=== PATIENT | male | born 1970 | race Caucasian/White ===

== ENCOUNTER 2017-02-05 15:23 | Emergency (ER) | payer MEDICAID, SELFPAY ==
[~2017-02-05] VITALS: Ht 160 cm; Wt 51.6 kg
[~2017-02-05 15:23] MED LIST: /THIA10TA OR; /WARF25TA OR; ACET65TA OR; LOPR50TA OR; MELOPOW PO; MULTIVIT PO; PERC5TAB8 OR; TRAM50TA2 OR; ZEST10TA OR
[2017-02-05 17:19] VITALS: BP 116/78
--- NOTE | 2017-02-06 08:32 | REP ---
Left rib series: Five views including PA chest. History: Left lower rib pain. Audible pop. Comparison chest x-ray: June 16, 2011. Findings: PA chest radiograph remains normal. The lungs are clear and well inflated. Pleural angles are sharp. There is no evidence of hydrothorax or pneumothorax. Mediastinum is not widened. Multiple views of the left rib cage show intact left ribs without evidence of rib fracture or bony destructive lesion. Impression: Negative left rib series. Signed by Brad Cox MD 02/06/2017 09:01 A
== END 2017-02-05 17:22 | disposition home or self-care (01) ==
LOC: M ED 16:08
DX: R07.81 Pleurodynia (principal); I10 Essential (primary) hypertension; F33.9 Major depressive disorder, recurrent, unspecified; Z91.040 Latex allergy status; F17.210 Nicotine dependence, cigarettes, uncomplicated

== ENCOUNTER 2019-01-18 15:03 | Emergency (ER) | payer SELFPAY ==
[~2019-01-18] VITALS: Ht 162.6 cm; Wt 55.3 kg
[~2019-01-18 15:03] MED LIST changes: -/WARF25TA OR; +COUM1TAB18 OR
[2019-01-18 15:04] VITALS: BP 185/101
[2019-01-18] MEDS ORDERED: [UNRECOGNIZED DRUG - REMARK] (15:14)
[2019-01-20] MEDS ORDERED: NAPR-837 PO (11:28)
[2019-01-20] MEDS ORDERED: VALI5TAB PO (11:28)
[2019-01-20] MEDS ORDERED: LIDO5DIS41 TOP (11:28)
== END 2019-01-18 16:50 | disposition left against medical advice (07) ==
LOC: M ED 15:03
DX: R29.6 Repeated falls (principal); Z53.21 Procedure and treatment not carried out due to patient leaving prior to being seen by health care provider

== ENCOUNTER → 2019-07-26 | Outpatient (CLI) | payer MEDICAID, OTHER ==
[~2019-07-26] MED LIST changes: +LIDO5DIS41 TOP; +NAPR-837 PO; +VALI5TAB PO; +[UNRECOGNIZED DRUG - REMARK]
--- NOTE | 2019-07-26 14:54 | REP ---
TRIPLE PHASE BONE SCAN OF LUMBAR SPINE: Following the intravenous administration of 22 millicuries technetium 99m MDP, patient's lumbar region is imaged in the flow phase in the anterior and posterior projections showing no abnormal blood flow. Immediate blood pool and 2-hour delayed images are performed in multiple projections. There is no abnormal blood pooling. The delayed images show increased uptake at the L1 level, at the site of the compression fracture noted by CT 01/20/2019. The other visualized osseous structures demonstrate homogeneous radiotracer activity with no abnormal uptake. IMPRESSION: There is mild to moderate increased uptake on delayed images in the L1 vertebral body, at the site of a compression fracture seen by CT 01/20/2019. Electronically Signed by Mic Artis MD 07/26/2019 04:56 P
== END ==
LOC: M RAD 10:42
PROVIDERS: ATTEND Orthopaedic Surgery
DX: S32.010D Wedge compression fracture of first lumbar vertebra, subsequent encounter for fracture with routine healing (principal)
CPT/HCPCS: 78315; A9503

== ENCOUNTER 2020-07-06 11:31 | Emergency (ER) | payer OTHER ==
[~2020-07-06] VITALS: Ht 162.6 cm; Wt 50.6 kg
[~2020-07-06 11:31] MED LIST changes: -[UNRECOGNIZED DRUG - REMARK]; +[UNRECOGNIZED DRUG - REMARK] PO
[2020-07-06] MEDS ORDERED: PANTOPRAZOLE 40MG VIAL (C9113 PER 1) IV ONE (13:00)
[2020-07-06] MEDS ORDERED: METOCLOPRAMIDE INJ 10MG/2ML VIAL (J2765 PER 1) IV ONE (13:00)
[2020-07-06] MEDS ORDERED: NS 1,000 ML IV ONE (13:00)
[2020-07-06 13:09] LABS: BASO % 0.2 % (0.0-1.0); EOS # 0.1 10^3/uL (0.0-0.5); EOS % 1.2 % (0.0-3.0); HEMATOCRIT 45.6 % (42.0-52.0); HEMOGLOBIN 16.1 g/dl (13.5-17.5); LYMPH # 1.6 10^3/uL (1.5-5.0); LYMPH % 13.6 % (24.0-44.0); MEAN CORPUSCULAR HEMOGLOBIN 33.8 pg (27.0-33.0); MEAN CORPUSCULAR HGB CONC 35.3 g/dl (32.0-36.5); MEAN CORPUSCULAR VOLUME 95.8 fl (80.0-96.0); MONO # 0.5 10^3/uL (0.0-0.8); MONO % 4.6 % (0.0-5.0); NEUTROPHILS # 9.4 10^3/uL (1.5-8.5); NEUTROPHILS % 79.9 % (36.0-66.0); PLATELET COUNT, AUTOMATED 171 10^3/uL (150-450); RED BLOOD COUNT 4.76 10^6/uL (4.30-6.10); WHITE BLOOD COUNT 11.7 10^3/uL (4.0-10.0)
[2020-07-06 13:35] LABS: ALBUMIN 4.4 GM/DL (3.2-5.2); ALT/SGPT 135 U/L (12-78); BILIRUBIN,DIRECT 0.1 MG/DL (0.0-0.2); BILIRUBIN,TOTAL 0.3 MG/DL (0.2-1.0); CK-MB VALUE MASS 1.2 NG/ML (<3.6); CPK CREATINE PHOSPHOKINASE 96 U/L (39-308); ETHYL ALCOHOL (ETHANOL) 0.312 % (0.000-0.010); LIPASE 160 U/L (73-393); MB/CK RELATIVE INDEX 1.25 (< OR =4); TROPONIN I < 0.02 NG/ML (< 0.10)
--- NOTE | 2020-07-06 13:37 | REP ---
INDICATION: congested cough. COMPARISON: Frontal view 02/05/2017 TECHNIQUE: The technique utilized in obtaining the radiograph has magnified the cardiac silhouette and attenuated the interstitial markings. FINDINGS: The cardiomediastinal silhouette is within normal limits. The lung limon are unchanged. No acute patchy parenchymal opacities or pleural effusions have developed. There is no significant change in the appearance of the osseous structures. IMPRESSION: No evidence of acute cardiopulmonary disease. <Electronically signed by Alexsander Vidal > 07/06/20 [id number]
[2020-07-06] MEDS ORDERED: ISOVUE-370 76% 100ML VIAL As Ordered ONE (14:08)
[2020-07-06 14:10] LABS: INR 0.92; PROTHROMBIN TIME 12.5 SECONDS (12.5-14.3)
[2020-07-06 14:11] LABS: PARTIAL THROMBOPLASTIN TIME 30.5 SECONDS (24.2-38.5)
--- NOTE | 2020-07-06 14:37 | REP ---
INDICATION: epigastric pain. COMPARISON: None TECHNIQUE: 100 cc Isovue 370 intravenously. No oral bowel preparatory contrast was administered. FINDINGS: There are chronic changes seen in the lung bases. There are no pleural or pericardial effusions. Mild diffuse low-density is suspected throughout the liver, however, there are no noncontrast enhanced images for review. There are no enhancing hepatic lesions. The gallbladder, spleen, pancreas, adrenal glands, and kidneys are within normal limits. The gallbladder is within normal limits. The bowel loops and the mesenteries are within normal limits. There is no free fluid or free air. The abdominal aorta and para-aortic regions are within normal limits. There is no evidence of a mass or adenopathy. The osseous structures are within normal limits for the patient's age. IMPRESSION: Possible mild diffuse fatty infiltration of the liver as described above. There is no evidence of acute intraabdominal or intrapelvic disease. <Electronically signed by Alexsander Vidal > 07/06/20 1960
[2020-07-06 15:16] VITALS: BP 137/89
[2020-07-06] MEDS ORDERED: ONDA4TAB6 PO (15:32)
[2020-07-06] MEDS ORDERED: CARA1TAB6 PO (15:33)
--- NOTE | 2020-07-07 10:15 | ECGEPIP ---
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
== END 2020-07-06 15:56 | disposition home or self-care (01) ==
LOC: M ED 11:31 → EDBD 11:31 → M ED 15:56
DX: F10.10 Alcohol abuse, uncomplicated (principal); Y90.1 Blood alcohol level of 20-39 mg/100 ml; K22.6 Gastro-esophageal laceration-hemorrhage syndrome; F17.210 Nicotine dependence, cigarettes, uncomplicated
CPT/HCPCS: 71045; 74177; 80047; 80076; 82550; 82553; 83690; 85025; 85610; 85730; 86850; 86900; 86901; 93005; 93041; 96374; 96375; 99285; C9113; G0480; J2765; Q9967

== ENCOUNTER 2020-09-17 11:44 | Emergency (ER) | payer OTHER ==
[~2020-09-17] VITALS: Ht 162.6 cm; Wt 51.6 kg
[2020-09-17 11:44] VITALS: BP 156/96
[~2020-09-17 11:44] MED LIST changes: +CARA1TAB6 PO; +ONDA4TAB6 PO
--- OUTSIDE RECORDS SUMMARY | 2020-09-17 11:52 | CCD | Continuity of Care Document ---
Author Author Salbador FARLEY PA Organization Unknown Address [address] [place] [address], [address] [place] [address] Phone [phone] Care Team Providers Care Cyber Security Analyst Name Role Phone Jori Aleman DO AUTM [phone] Miki Malcolm MD Unavailable Problems Active Problems Provider Date Compression fracture of lumbar spine Ons et: 01/20/2019 Left without being seen Onset: 9 Rib pain Onset: 02/05/2017 Social History Type Date Description Comments Sex Unknown ETOH Use Currently consumes alcohol Tobacco Use Start: Unknown Patient was a smoker, current st atus is unknown Allergies, Adverse Reactions, Alerts Description No Known Drug Allergies Medications Description No Active Medications Immunizations Description No Information Available Vital Signs Date Vital Result Comment 06/19/2020 2:01pm Body Temperature 97.3 F 01/24/2019 11:17am Body Temperature 97.4 F Height 63 inches 5'3" Weight 117.00 lb BMI (Body Mass Index) 20.7 kg/m2 Results Description No Information Available Procedures Date Code Description Status 05/06/2020 69804 X-Ray Spine Lumbosacral Complete W/Oblique 4 Views Completed Medical Devices Description No Information Available Encounters Type Date Location Provider Dx Diagnosis Office Visit 06/19/2020 2:00p [place] IVAN Fuller S32.010A Wedge compression fracture of first lumbar vertebra, init Office Visit 05/06/2020 1:45p [place] IVAN Fuller S32.010D Wedge comprsn fx first lum vert, subs for fx w routn heal Z96.652 Presence of left artificial knee joint Assessments Date Code Description Provider 06/19/2020 S32.010A Wedge compression fr acture of first lumbar vertebra, initial encounter for closed fracture IVAN Fuller 06/19/2020 S32.010A Wedge compression fr acture of first lumbar vertebra, initial encounter for closed fracture IVAN Fuller 06/17/2020 S32.010D Wedge compression fr acture of first lumbar vertebra, subsequ IVAN Fuller 06/17/2020 Z96.652 Presence of left artificial knee joint IVAN Fuller 06/17/2020 M51.36 Other intervertebral disc degene ration, lumbar region IVAN Fuller 06/17/2020 M47.896 Other spondylosis, lumbar region IVAN Fuller 05/06/2020 S32.010D Wedge compression fr acture of first lumbar vertebra, subsequ IVAN Fuller 05/06/2020 Z96.652 Presence of left artificial knee joint IVAN Fuller Plan of Treatment Future Appointment(s):* 07/24/2020 11:00 am - IVAN Fuller at [place] 06/19/2020 - IVAN Fuller* S32.010A Wedge compression fracture of first lumbar vertebra, initial encounter for closed fracture* Follow up:* with IID in 3 weeks Functional Status Description No Information Available Mental Status Description No Information Available Referrals Refer to Dr Reason for Referral Status Appt Date Nathaniel Farley Pac DME PER ANNY Capps AT [facility] AUTH REQUIRED FOR [place] 637LSO ([id number]) AND COVERED AT 100% TO [facility] NT CALL REF #[id number] [facility] [address] [place] [address] [phone]
--- OUTSIDE RECORDS SUMMARY | 2020-09-17 11:52 | CCD | Continuity of Care Document ---
Author Author Salbador FARLEY Organization Unknown Address [address] [place] [address], [address] [place] [address] Phone [phone] Care Team Providers Care Pbx Inspector Name Role Phone Jori Aleman DO AUTM [phone] Miki Malcolm MD AUTShane Unavailable Problems Active Problems Provider Date Compression [...] Available Procedures Date Code Description Status 05/06/2020 91063 X-Ray Spine Lumbosacral Complete W/Oblique 4 Views Completed Medical Devices Description No Information Available Encounters Type Date Location Provider Dx Diagnosis Office Visit 06/19/2020 2:00p [place] IVAN Fuller S32.010D Wedge comprsn fx first lum vert, subs for fx w routn heal M51.36 Other intervertebral disc de generation, lumbar region M47.896 Other spondylosis, lumbar re gion Office Visit 05/06/2020 1:45p [place] IVAN Fuller S32.010D Wedge comprsn fx first lum vert, subs for fx w routn heal Z96.652 Presence of left artificial knee joint Assessments Date Code Description Provider 06/19/2020 S32.010D Wedge compression fr acture of first lumbar vertebra, subsequ IVAN Fuller 06/19/2020 M51.36 Other intervertebral disc degene ration, lumbar region IVAN Fuller 06/19/2020 M47.896 Other spondylosis, lumbar region IVAN Fuller 06/17/2020 S32.010D Wedge compression fr [...] knee joint IVAN Fuller Plan of Treatment 06/19/2020 - IVAN Fuller* S32.010D Wedge compression fracture of first lumbar vertebra, subsequ* Follow up:* with IID in 3 weeks * M51.36 Other intervertebral disc degeneration, lumbar region * M47.896 Other spondylosis, lumbar region Functional Status Description No Information Available Mental Status Description No Information Available Referrals Refer to Dr Reason for Referral Status Appt Date Nathaniel Farley Pac DME PER ANNY Capps AT [facility] AUTH REQUIRED FOR [place]IST[place] 637LSO ([id number]) AND COVERED AT 100% TO [facility] NT CALL REF #[id number] Created [facility] [address] [place] [address] [phone]
--- OUTSIDE RECORDS SUMMARY | 2020-09-17 11:52 | CCD | Continuity of Care Document ---
Author Author Salbador FARLEY Organization Unknown Address [address] [place] [address], [address] [place] [address] Phone [phone] Care Team Providers Care Prepared Foods Team Leader Name Role Phone Jori Aleman DO AUTM [phone] Miki Malcolm MD Unavailable Problems Active Problems [...] Available Procedures Date Code Description Status 05/06/2020 31742 X-Ray Spine Lumbosacral Complete W/Oblique 4 Views Completed Medical Devices Description No Information Available Encounters Type Date Location Provider Dx Diagnosis Office Visit 06/19/2020 2:00p [place] IVAN Fuller S32.010A Wedge compression fracture of first lumbar vertebra, init Office Visit 05/06/2020 1:45p [place] IVAN Fuller S32.010D Wedge comprsn fx first [...] 07/24/2020 11:00 am - IVAN Fuller at [place] 06/19/2020 - IVAN Fuller* S32.010A Wedge compression fracture of first lumbar vertebra, initial encounter for closed fracture* Follow up:* with IID in 3 weeks Functional Status Description No Information Available Mental Status Description No Information Available Referrals Refer to Dr Reason for Referral Status Appt Date Nathaniel Farley Pac DME PER ANNY Capps AT [facility] AUTH REQUIRED FOR [place] 637LSO (L0650) AND COVERED AT 100% TO [facility] NT CALL REF #[id number] Created [facility] [address] [place] [address] [phone]
--- OUTSIDE RECORDS SUMMARY | 2020-09-17 11:52 | CCD | Continuity of Care Document ---
Author Author Salbador FARLEY Organization Unknown Address [address] [place] [address], [address] [place] [address] Phone [phone] Care Team Providers Care Card Setter Name Role Phone Jori Aleman DO AUTM [phone] Miki Malcolm MD AUTShane Unavailable Problems Active [...] Available Procedures Date Code Description Status 05/06/2020 33339 X-Ray Spine Lumbosacral Complete W/Oblique 4 Views Completed Medical Devices Description No Information Available Encounters Type Date Location Provider Dx Diagnosis Office Visit 06/19/2020 2:00p [place] IVAN Fuller S32.010D Wedge comprsn fx first lum vert, subs for fx w routn heal M51.36 Other intervertebral disc de generation, lumbar region M47.896 Other spondylosis, lumbar re gion Office Visit 05/06/2020 1:45p [place] IVAN Fuller S32.010D Wedge comprsn fx first [...] 07/24/2020 11:00 am - IVAN Fuller at [place] 06/19/2020 - IVAN Fuller* S32.010D Wedge compression [...] Farley Pac DME PER ANNY Capps AT [facility] AUTH REQUIRED FOR VISTA 637LSO ([id number]) AND COVERED AT 100% TO [facility] NT CALL REF #[phone] Created [address] [facility] [address] [place] [address] [phone]
--- OUTSIDE RECORDS SUMMARY | 2020-09-17 11:52 | CCD | Continuity of Care Document ---
Author Author Salbador FARLEY Organization Unknown Address [address] [place] [address], [address] [place] [address] Phone [phone] Care Team Providers Care Nail Making Machine Tender Name Role Phone Jori Aleman DO AUTM [phone] Miki Malcolm MD Unavailable Problems Active Problems [...] Information Available Procedures Date Code Description Status 07/24/2020 81417 X-Ray Spine Lumbosacral Ap & Lat eral 2-3 Views Completed 05/06/2020 98216 X-Ray Spine Lumbosacral Complete W/Oblique 4 Views Completed Medical Devices Description No Information Available Encounters Type Date Location Provider Dx Diagnosis Office Visit 07/24/2020 11:00a [place] IVAN Fuller S32.010D Wedge comprsn fx first lum vert, subs for fx w routn heal Office Visit 06/19/2020 2:00p [place] IVAN Fuller S32.010A Wedge compression fracture of first lumbar vertebra, init Office Visit 05/06/2020 1:45p [place] IVAN Fuller S32.010D Wedge comprsn fx first lum vert, subs for fx w routn heal Z96.652 Presence of left artificial knee joint Assessments Date Code Description Provider 07/24/2020 S32.010D Wedge compression fr acture of first lumbar vertebra, subsequent encounter for fracture with routine healing IVAN Fuller 06/19/2020 S32.010A Wedge compression fr [...] IVAN Fuller Plan of Treatment Future Appointment(s):* 08/25/2020 11:30 am - IVAN Fuller at [place] 07/24/2020 - IVAN Fuller* S32.010D Wedge compression fracture of first lumbar vertebra, subsequent encounter for fracture with routine healing* Follow up:* f/u in 4 weeks back recheck with xrays lumbar spine ap-l Functional Status Description No Information Available Mental Status Description No Information Available Referrals Refer to Dr Reason for Referral Status Appt Date Nathaniel Farley Pac DME PER ANNY Capps AT [facility] AUTH REQUIRED FOR [place] 637LSO ([id number]) AND COVERED AT 100% TO [facility] NT CALL REF #[phone] [place] [address] [address] [place] [address] [phone]
--- OUTSIDE RECORDS SUMMARY | 2020-09-17 11:53 | CCD ---
Author Author [facility] Organization [facility] Address Unknown Phone Unavailable Care Team Providers Care Plastics Worker Name Role Phone DRAZEK, I KAYLA PA Unavailable Unavailable DRAZEK, I KAYLA PA Unavailable Unavailable DRAZEK, I KAYLA PA Unavailable Unavailable DRAZEK, I KAYLA PA Unavailable Unavailable DRAZEK, I KAYLA PA Unavailable Unavailable DRAZEK, I KAYLA PA Unavailable Unavailable DRAZEK, I KAYLA PA Unavailable Unavailable DRAZEK, I KAYLA PA Unavailable Unavailable DRAZEK, I KAYLA PA Unavailable Unavailable DRAZEK, I KAYLA PA Unavailable Unavailable DRAZEK, I KAYLA PA Unavailable Unavailable DRAZEK, I KAYLA PA Unavailable Unavailable DRAZEK, I KAYLA PA Unavailable Unavailable DRAZEK, I KAYLA PA Unavailable Unavailable DRAZEK, I KAYLA PA Unavailable Unavailable DRAZEK, I KAYLA PA Unavailable Unavailable DRAZEK, I KAYLA PA Unavailable Unavailable DRAZEK, I KAYLA PA Unavailable Unavailable DRAZEK, I KAYLA PA Unavailable Unavailable DRAZEK, I KAYLA PA Unavailable Unavailable DRAZEK, I KAYLA PA Unavailable Unavailable DRAZEK, I KAYLA PA Unavailable Unavailable DRAZEK, I KAYLA PA Unavailable Unavailable DRAZEK, I KAYLA PA Unavailable Unavailable DRAZEK, I KAYLA PA Unavailable Unavailable DRAZEK, I KAYLA PA Unavailable Unavailable DRAZEK, I KAYLA PA Unavailable Unavailable DRAZEK, I KAYLA PA Unavailable Unavailable DRAZEK, I KAYLA PA Unavailable Unavailable DRAZEK, I KAYLA PA Unavailable Unavailable House, Tommie Corrales PA Unavailable Unavailable House, Tommie Corrales PA Unavailable Unavailable House, Tommie Corrales PA Unavailable Unavailable House, Tommie Corrales PA Unavailable Unavailable House, Tommie Antoni PA Unavailable Unavailable House, Tommie Antoni PA Unavailable Unavailable House, Tommie Antoni PA Unavailable Unavailable House, Tommie Antoni PA Unavailable Unavailable House, Tommie Antoni PA Unavailable Unavailable House, Tommie Antoni PA Unavailable Unavailable House, Tommie Antoni PA Unavailable Unavailable House, Tommie Antoni PA Unavailable Unavailable House, Tommie Antoni PA Unavailable Unavailable House, Tommie Antoni PA Unavailable Unavailable House, Tommie Antoni PA Unavailable Unavailable House, Tommie Antoni PA Unavailable Unavailable House, Tommie Antoni PA Unavailable Unavailable House, Tommie Antoni PA Unavailable Unavailable House, Tommie Antoni PA Unavailable Unavailable House, Tommie Antoni PA Unavailable Unavailable House, Tommie Antoni PA Unavailable Unavailable House, Tommie Antoni PA Unavailable Unavailable House, Tommie Antoni PA Unavailable Unavailable House, Tommie Antoni PA Unavailable Unavailable House, Tommie Corrales PA Unavailable Unavailable House, Tommie Corrales PA Unavailable Unavailable Re-disclosure Warning The records that you are about to access may contain information from federally-assisted alcohol or drug abuse programs. If such information is present, then the following federally mandated warning applies: This information has been disclosed to you from records protected by federal confidentiality rules (42 CFR part 2). The federal rules prohibit you from making any further disclosure of this information unless further disclosure is expressly permitted by the written consent of the person to whom it pertains or as otherwise permitted by 42 CFR part 2. A general authorization for the release of medical or other information is NOT sufficient for this purpose. The Federal rules restrict any use of the information to criminally investigate or prosecute any alcohol or drug abuse patient.The records that you are about to access may contain highly sensitive health information, the redisclosure of which is protected by Article 27-F of the [place] State Public Health law. If you continue you may have access to information: Regarding HIV / AIDS; Provided by facilities licensed or operated by the [facility] Office of Mental Health; or Provided by the [facility] Office for People With Developmental Disabilities. If such information is present, then the following [facility] mandated warning applies: This information has been disclosed to you from confidential records which are protected by state law. State law prohibits you from making any further disclosure of this information without the specific written consent of the person to whom it pertains, or as otherwise permitted by law. Any unauthorized further disclosure in violation of state law may result in a fine or usp sentence or both. A general authorization for the release of medical or other information is NOT sufficient authorization for further disc losure. Encounters Encounter Providers Location Date Indications Data Source(s ) Outpatient Attender: K[facility]LA [facility] 07/24/2020 1 0:00:00 AM EST [facility] ([facility]) Outpatient Attender: K[facility]LA [facility] 06/19/2020 0 2:00:00 PM EDT [facility] ([facility]) Outpatient Attender: KAYLA [facility] 05/06/2020 0 1:45:00 PM EDT [facility] ([facility] Outpatient Referrer: Antoni LOVE 08/07/2019 09:11:00 P M EST [facility] Outpatient Attender: KAYLA [facility] 08/07/2019 1 0:30:00 AM EST [facility] ([facility]) Medications Medication Brand Name Start Date Product Form Dose Route Admi nistrative Instructions Pharmacy Instructions Status Indications Reaction Description Data Source(s) 1 % 09/11/2020 12:00:00 AM EST drops,suspension 5 INSTILL ONE DROP FOUR TIMES A DAY IN EACH EYE INSTILL ONE DROP FOUR TIMES A DAY IN EACH EYE SOLD: 09/12/2020 [facility] Insurance Providers Payer name Policy type / Coverage type Policy ID Covered democrat ID Covered democrat's relationship to grande Policy [place] Plan Information [facility] [id number] SP [id number] [facility]) O [id number] S [id number] UN COMMUNITY PLAN MCDO [id number] SP [id number] MEDICAID [id number] SP [id number] [facility] COMM[facility] PLAN [facility] [id number] SP [id number] SELF PAY ONLY [id number] SP [id number] SELF PAY ONLY [id number] SP [id number] SELF PAY UNAVAILABLE SP UNAVAILA BLE [employer] PLAN [id number] SP [id number] [employer] [id number] SP [id number] Surgeries/Procedures Procedure Description Date Indications Data Source(s) RADEX SPINE LUMBOSACRAL 2/3 VIEWS 07/24/2020 12:00:00 AM EST [facility] ([facility]) RADEX SPINE LUMBOSACRAL MINIMUM 4 VIEWS 05/06/2020 12: 00:00 AM EDT [facility] ([facility]) Results ID Date Data Source [id number] 05/23/2020 12:00:00 AM EDT [facility] Kayla LOVE Patient Name: GINGER DONALD [id number] [facility] Date of : 1970[place] [address] Date of Exam: 05/23/2020#: Fax: [phone] EXAM: MRI LUMBAR SPINE WITHOUT CONTRASTPROCEDURE INFORMATION:Exam: MR Lumbar Spine Without Contrast.Exam date and time: 05/23/2020 10:09 AM Age: 50 years oldClinical indication: Low back painTECHNIQUE: Imaging protocol: Multiplanar magnetic resonance images of thelumbar spine without intravenous contrast.COMPARISON: No relevant prior studies available.FINDINGS:Vertebrae: There is a moderate L1 ventral compression deformity withincreased edema, compatible with acute or subacute time course. There is 3mm of retropulsion of the posterior and superior margin into the canal.Spinal cord: Normal signal. No cord compression.L1-L2: There is shallow disc bulging. There is mild facet hypertrophy. Thespinal canal and neural foramina are patent.L2-L3: There is disc bulging with a central annular tear. There is mildfacet hypertrophy. There is m ild bilateral neural foraminal narrowing.L3-L4: There is shallow disc bulging. There is mild facet hypertrophy. Thespinal canal and neural foramina are patent.L4-L5: There is diffuse disc bulging. There is moderate facet hypertrophy.The spinal canal and neural foramina are patent.L5-S1: There is shallow disc bulging. There is severe right and moderateleft facet hypertrophy. There is ggsp-fm-[id number] right neural foraminalnarrowing.Soft tissues: Unremarkable.IMPRESSION:1. Acute/subacute moderate L1 compression deformity.2. Degenerative disc disease and spondylosis as described.Thank you for allowing us to participate in the care of your patient.Dictated and Authenticated by: Randi Mayfield MD 05/23/2020 12:55 PMEastern Time ([place] & [place])VradV/jmcTdede you for referring GINGER DONALD to our office. Electronically Signed - [facility] 05/23/20 13:14 Name Value Range Interpretation Code Description Data Tammi rce(s) Supporting Document(s) Procedure Vital Signs ID Date Data Source UNK Name Value Range Interpretation Code Description Data Source(s) Body temperature 97.3 [degF] 97.3 [degF] [facility] ([facility]
[2020-09-17] MEDS ORDERED: PREDOPD OU (12:01)
--- OUTSIDE RECORDS SUMMARY | 2020-09-17 12:30 | CCD ---
Author Author [facility] Organization [facility] Address Unknown Phone Unavailable Care Team Providers Care Reel Film Inspector Name Role Phone DRAZEK, I KAYLA PA Unavailable Unavailable DRAZEK, I KAYLA PA Unavailable Unavailable DRAZEK, I KAYLA PA Unavailable Unavailable DRAZEK, I KAYLA PA Unavailable Unavailable DRAZEK, I KAYLA PA Unavailable Unavailable DRAZEK, I KAYLA PA Unavailable Unavailable DRAZEK, I KAYLA PA Unavailable Unavailable DRAZEK, I KAYLA PA Unavailable Unavailable DRAZEK, I KAYLA PA Unavailable Unavailable DRAZEK, I KYALA PA Unavailable Unavailable DRAZEK, I KAYLA PA [...] is protected by Article 27-F of the [place] Public Health law. If you continue you may have access to information: Regarding HIV / AIDS; Provided by facilities licensed or operated by the [facility] Office of Mental Health; or Provided by the [facility] Office for People With Developmental Disabilities. If such information is present, then the following [facility] mandated warning applies: This information has [...] law may result in a fine or correction sentence or both. A general authorization for the release of medical or other information is NOT sufficient authorization for further disc losure. Encounters Encounter Providers Location Date Indications Data Source(s ) Outpatient Attender: KAYLA LOVE Physical Therapy 07/24/2020 1 0:00:00 AM EST [facility] ([facility]) Outpatient Attender: KAYLA LOVE Physical Therapy 06/19/2020 0 2:00:00 PM EDT [facility] ([facility]) Outpatient Attender: KAYLA LOVE Physical Therapy 05/06/2020 0 1:45:00 PM EDT [facility] ([facility] ) Outpatient Referrer: Antoni LOVE 08/07/2019 09:11:00 P M EST [facility] Outpatient Attender: KAYLA LOVE Physical Therapy 08/07/2019 1 0:30:00 AM EST [facility] ([facility]) Medications Medication Brand Name Start [...] type / Coverage type Policy ID Covered republican ID Covered republican's relationship to grande Policy Grande Plan Information [facility] [id number] SP [id number] [facility]) O [id number] S [id number] UN COMMUNITY PLAN MCDO [id number] SP [id number] MEDICAID [id number] SP [id number] [facility] COMMUNITY PLAN [facility] [id number] SP [id number] SELF PAY ONLY [id number] SP [id number] SELF PAY ONLY SP1 SP SP1 SELF PAY UNAVAILABLE SP UNAVAILA BLE [employer] PLAN [id number] SP [id number] [employer] PLAN [id number] SP [id number] Surgeries/Procedures Procedure Description Date Indications Data Source(s) RADEX SPINE LUMBOSACRAL 2/3 VIEWS 07/24/2020 12:00:00 AM EST [facility] ([facility]) RADEX SPINE LUMBOSACRAL MINIMUM 4 VIEWS 05/06/2020 12: 00:00 AM EDT [facility] ([facility]) Results ID Date Data Source [id number] 05/23/2020 12:00:00 AM EDT [facility] Kayla LOVE Patient Name: GINGER DONALD [id number] [facility] Date of : 1970[place] [address] Date of Exam: 05/23/2020#: Fax: [phone] EXAM: [...] right and moderateleft facet hypertrophy. There is duau-cc-[id number] right neural foraminalnarrowing.Soft tissues: Unremarkable.IMPRESSION:1. Acute/subacute moderate [...] Body temperature 97.3 [degF] 97.3 [degF] [facility] ([facility] )
[2020-09-17 13:35] LABS: APPEARANCE, URINE CLEAR (CLEAR); BACTERIA, URINE AUTO NEGATIVE (NEGATIVE); BILIRUBIN, URINE AUTO NEGATIVE (NEGATIVE); BLOOD, URINE BLOOD NEGATIVE (NEGATIVE); COLOR, URINE STRAW (YELLOW); GLUCOSE, URINE (UA) AUTO NEGATIVE (NEGATIVE); KETONE, URINE AUTO NEGATIVE (NEGATIVE); LEUKOCYTE ESTERASE, URINE AUTO NEGATIVE (NEGATIVE); NITRITE, URINE AUTO NEGATIVE (NEGATIVE); PROTEIN, URINE AUTO NEGATIVE (NEGATIVE); RBC, URINE AUTO 0 /HPF (0-3); SPECIFIC GRAVITY URINE AUTO 1.001 (1.002-1.035); SQUAMOUS EPITHELIAL CELL UR AU 0 /HPF (0-6); UROBILINOGEN, URINE AUTO 0.2 mg/dL (0.0-2.0); WBC, URINE AUTO 0 /HPF (0-3)
== END 2020-09-17 13:32 | disposition left against medical advice (07) ==
LOC: M ED 11:44
DX: R21 Rash and other nonspecific skin eruption (principal); F17.210 Nicotine dependence, cigarettes, uncomplicated

== ENCOUNTER 2020-09-19 11:14 | Emergency (ER) | payer OTHER ==
[~2020-09-19] VITALS: Ht 162.6 cm; Wt 52.5 kg
[~2020-09-19 11:14] MED LIST changes: +PREDOPD OU
--- OUTSIDE RECORDS SUMMARY | 2020-09-19 11:23 | CCD ---
Author Author [facility] Organization [facility] Address Unknown Phone Unavailable Care Team Providers Care Pipe Blanks Cut Off Saw Operator Name Role Phone DRAZEK, I NATHANIEL PA Unavailable Unavailable DRAZEK, I NATHANIEL PA Unavailable Unavailable DRAZEK, I NATHANIEL PA Unavailable Unavailable DRAZEK, I NATHANIEL PA Unavailable Unavailable DRAZEK, I NATHANIEL PA Unavailable Unavailable DRAZEK, I NATHANIEL PA Unavailable Unavailable DRAZEK, I NATHANIEL PA Unavailable Unavailable DRAZEK, I NATHANIEL PA Unavailable Unavailable DRAZEK, I NATHANIEL PA Unavailable Unavailable DRAZEK, I NATHANIEL PA Unavailable Unavailable DRAZEK, I NATHANIEL PA Unavailable Unavailable DRAZEK, I NATHANIEL PA Unavailable Unavailable DRAZEK, I NATHANIEL PA Unavailable Unavailable DRAZEK, I NATHANIEL PA Unavailable Unavailable DRAZEK, I NATHANIEL PA Unavailable Unavailable DRAZEK, I NATHANIEL PA Unavailable Unavailable DRAZEK, I NATHANIEL PA Unavailable Unavailable DRAZEK, I NATHANIEL PA Unavailable Unavailable DRAZEK, I NATHANIEL PA Unavailable Unavailable DRAZEK, I NATHANIEL PA Unavailable Unavailable DRAZEK, I NATHANIEL PA Unavailable Unavailable DRAZEK, I NATHANIEL PA Unavailable Unavailable DRAZEK, I NATHANIEL PA Unavailable Unavailable DRAZEK, I NATHANIEL PA Unavailable Unavailable DRAZEK, I NATHANIEL PA Unavailable Unavailable DRAZEK, I NATHANIEL PA Unavailable Unavailable DRAZEK, I NATHANIEL PA Unavailable Unavailable DRAZEK, I NATHANIEL PA Unavailable Unavailable DRAZEK, I NATHANIEL PA Unavailable Unavailable DRAZEK, I NATHANIEL PA Unavailable Unavailable House, Tommie Corrales PA [...] House, Tommie Antoni PA Unavailable Unavailable House, Tmomie Antoni PA Unavailable Unavailable House, Tommie Antoni PA Unavailable Unavailable House, Tommie Antoni PA Unavailable Unavailable Re-disclosure Warning The records [...] is protected by Article 27-F of the [facility] Public Health law. If you continue you may have access to information: Regarding HIV / AIDS; Provided by facilities licensed or operated by the [facility] Office of Mental Health; or Provided by the [facility] Office for People With Developmental Disabilities. If such information is present, then the following [facility] mandated warning applies: This information has [...] law may result in a fine or retirement sentence or both. A general authorization for the release of medical or other information is NOT sufficient authorization for further disc losure. Encounters Encounter Providers Location Date Indications Data Source(s ) Outpatient Attender: NATHANIEL LOVE Physical Therapy 07/24/2020 1 0:00:00 AM EST [facility] ([facility]) Outpatient Attender: NATHANIEL LOVE Physical Therapy 06/19/2020 0 2:00:00 PM EDT [facility] ([facility]) Outpatient Attender: NATHANIEL LOVE Physical Therapy 05/06/2020 0 1:45:00 PM EDT [facility] ([facility] ) Outpatient Referrer: Antoni LOVE 08/07/2019 09:11:00 P M EST [facility] Outpatient Attender: NATHANIEL LOVE Physical Therapy 08/07/2019 1 0:30:00 AM EST [facility] ([facility]) Medications Medication Brand Name [...] type / Coverage type Policy ID Covered constitution party ID Covered constitution party's relationship to grande Policy Grande Plan Information [facility] COMMUNITY [facility] [id number] SP [id number] [facility]ID) O [id number] S [id number] [employer] COMMUNITY PLAN MCDO [id number] SP [id number] MEDICAID [id number] SP [id number] [employer] COMMUNITY PLAN MCDO [id number] SP [id number] SELF PAY ONLY [id number] SP [id number] SELF PAY ONLY SP1 SP SP1 SELF PAY UNAVAILABLE SP UNAVAILA BLE [employer] PLAN [id number] SP [id number] [employer] PLAN [id number] SP [id number] Surgeries/Procedures Procedure Description Date Indications Data Source(s) RADEX SPINE LUMBOSACRAL 2/3 VIEWS 07/24/2020 12:00:00 AM EST [facility] ([facility]) RADEX SPINE LUMBOSACRAL MINIMUM 4 VIEWS 05/06/2020 12: 00:00 AM EDT [facility] ([facility]) Results ID Date Data Source [id number] 05/23/2020 12:00:00 AM EDT [facility] Nathaniel LOVE Patient Name: GINGER DONALD [id number] [facility] Date of : 1970[place] [address] Date of Exam: 05/23/2020#: Fax: [phone] EXAM: [...] right and moderateleft facet hypertrophy. There is pxtu-[id number] right neural foraminalnarrowing.Soft tissues: Unremarkable.IMPRESSION:1. Acute/subacute moderate L1 compression deformity.2. Degenerative disc disease and spondylosis as described.Thank you for allowing us to participate in the care of your patient.Dictated and Authenticated by: Randi Mayfield MD 05/23/2020 12:55 PMEastern Time ([place] & [place])VradV/jmcThanclaire you for referring GINGER DONALD to our office. Electronically Signed - [facility] 05/23/20 13:14 Name Value Range Interpretation Code Description Data Tammi rce(s) Supporting Document(s) Procedure Vital Signs ID Date Data Source UNK Name Value Range Interpretation Code Description Data Source(s) Body temperature 97.3 [degF] 97.3 [degF] [facility] ([facility] )
[2020-09-19] MEDS ORDERED: PRED1SUS30 OP (11:29)
--- OUTSIDE RECORDS SUMMARY | 2020-09-19 11:53 | CCD ---
Author Author [facility] Organization [facility] Address Unknown Phone Unavailable Care Team Providers Care Ceo And Founder Name Role Phone DRAZEK, I NATHANIEL PA [...] is protected by Article 27-F of the [facility] Public Health law. If you continue you may have access to information: Regarding HIV / AIDS; Provided by facilities licensed or operated by the [facility] Office of Mental Health; or Provided by the [facility] Office for People With Developmental Disabilities. If such information is present, then the following [facility] mandated warning applies: This information has been [...] Therapy 07/24/2020 1 0:00:00 AM EST [facility] ([facility]) Outpatient Attender: NATHANIEL LOVE Physical Therapy 06/19/2020 0 2:00:00 PM EDT [facility] ([facility]) Outpatient Attender: NATHANIEL LOVE Physical Therapy 05/06/2020 0 1:45:00 PM EDT [facility] ([facility] ) Outpatient Referrer: Antoni LOVE 08/07/2019 09:11:00 P M EST [facility] Outpatient Attender: NATHANIEL LOVE Physical Therapy 08/07/2019 1 0:30:00 AM EST [facility] ([facility]) Medications Medication Brand Name [...] grande Policy Grande Plan Information [facility] COMMUNITY [facility] [id number] SP [id number] [facility](MCAID) O [id number] S [id number] [employer] COMMUNITY PLAN MCDO [id number] SP [id number] MEDICAID [id number] SP [id number] UNHC COMMUNITY PLAN MCDO [id number] SP [id number] SELF PAY ONLY [id number] SP [id number] SELF PAY ONLY SP1 SP SP1 SELF PAY UNAVAILABLE SP UNAVAILA BLE [employer] PLAN [id number] SP [id number] [employer] PLAN [id number] SP [id number] Surgeries/Procedures Procedure Description Date Indications Data Source(s) RADEX SPINE LUMBOSACRAL 2/3 VIEWS 07/24/2020 12:00:00 AM EST [facility] ([facility]) RADEX SPINE LUMBOSACRAL MINIMUM 4 VIEWS 05/06/2020 12: 00:00 AM EDT [facility] ([facility]) Results ID Date Data Source [id number] 05/23/2020 12:00:00 AM EDT [facility] Nathaniel LOVE Patient Name: GINGER DONALD [id number] [facility] Date of : 1970[place] [address] Date of Exam: 05/23/2020#: Fax: [phone] EXAM: [...] right and moderateleft facet hypertrophy. There is amxv-fh-oystlvip right neural foraminalnarrowing.Soft tissues: Unremarkable.IMPRESSION:1. Acute/subacute moderate [...] Body temperature 97.3 [degF] 97.3 [degF] [facility] ([facility] )
[2020-09-19] MEDS ORDERED: PRED5SOL10 PO (12:10)
[2020-09-19 12:22] VITALS: BP 162/93
== END 2020-09-19 12:23 | disposition home or self-care (01) ==
LOC: M ED 11:14
DX: L30.9 Dermatitis, unspecified (principal); F17.210 Nicotine dependence, cigarettes, uncomplicated

== ENCOUNTER → 2020-11-05 | Outpatient (REF) | payer OTHER ==
[~2020-11-05] MED LIST changes: +PRED1SUS30 OP; +PRED5SOL10 PO
== END ==
LOC: M LAB REF 17:15
PROVIDERS: ATTEND Physician Assistant
DX: R21 Rash and other nonspecific skin eruption (principal)

== ENCOUNTER → 2021-02-25 | Outpatient (CLI) | payer OTHER ==
[2021-02-25 14:30] LABS: HEMATOCRIT 40.1 % (42.0-52.0); HEMOGLOBIN 13.7 g/dl (13.5-17.5); MEAN CORPUSCULAR HEMOGLOBIN 34.3 pg (27.0-33.0); MEAN CORPUSCULAR HGB CONC 34.2 g/dl (32.0-36.5); MEAN CORPUSCULAR VOLUME 100.5 fl (80.0-96.0); PLATELET COUNT, AUTOMATED 227 10^3/uL (150-450); RED BLOOD COUNT 3.99 10^6/uL (4.30-6.10); WHITE BLOOD COUNT 6.7 10^3/uL (4.0-10.0)
[2021-02-25 15:02] LABS: ALBUMIN 3.4 GM/DL (3.2-5.2); ALT/SGPT 190 U/L (12-78); BILIRUBIN,TOTAL 0.3 MG/DL (0.2-1.0); BLOOD UREA NITROGEN 5 MG/DL (7-18); CALCIUM LEVEL 8.4 MG/DL (8.5-10.1); CARBON DIOXIDE LEVEL 24 MEQ/L (21-32); CHLORIDE LEVEL 103 MEQ/L (98-107); CREATININE FOR GFR 0.79 MG/DL (0.70-1.30); GLOMERULAR FILTRATION RATE > 60.0 (>56); GLUCOSE, FASTING 81 MG/DL (70-100); PHOSPHORUS LEVEL 4.4 MG/DL (2.5-4.9); POTASSIUM SERUM 4.2 MEQ/L (3.5-5.1); SODIUM LEVEL 134 MEQ/L (136-145); TOTAL PROTEIN 7.4 GM/DL (6.4-8.2)
[2021-02-25 15:21] LABS: HEPATITIS B SURFACE ANTIGEN NEGATIVE (NEGATIVE)
[2021-02-25 15:48] LABS: HEPATITIS B CORE ANTIBODY IGM NEGATIVE (NEGATIVE)
[2021-02-25 15:49] LABS: HIV 1&2 SCREEN CENTAUR NEGATIVE (NEGATIVE)
== END ==
LOC: M LAB 13:48
PROVIDERS: ATTEND Physician Assistant
DX: L28.2 Other prurigo (principal)

== ENCOUNTER 2021-10-15 15:52 | Emergency (ER) | payer OTHER ==
[~2021-10-15] VITALS: Ht 160 cm; Wt 53.7 kg
[2021-10-15 15:53] VITALS: BP 129/89
[2021-10-15] MEDS ORDERED: TACR0.1O (16:28)
[2021-10-15] MEDS ORDERED: HYDR50TA70 (16:28)
[2021-10-15] MEDS ORDERED: DEXT30LI (16:28)
[2021-10-15] MEDS ORDERED: ALBU8.5H (16:28)
[2021-10-15] MEDS ORDERED: INCR1INH (16:28)
[2021-10-15] MEDS ORDERED: PRED20TA (16:28)
[2021-10-15] MEDS ORDERED: PRED20TA PO (17:09)
[2021-10-15] MEDS ORDERED: methylPREDNISolone 125MG 2ML VIAL IM ONE (17:10)
== END 2021-10-15 17:23 | disposition home or self-care (01) ==
LOC: M ED 15:52
DX: R21 Rash and other nonspecific skin eruption (principal); L29.9 Pruritus, unspecified; J45.909 Unspecified asthma, uncomplicated
CPT/HCPCS: 96372; 99283; J2930

== ENCOUNTER → 2022-04-16 | Outpatient (CLI) | payer OTHER ==
[~2022-04-16] MED LIST changes: +ALBU8.5H; +DEXT30LI; +HYDR50TA70; +INCR1INH; +PRED20TA; +PRED20TA PO; +TACR0.1O
[2022-04-16 13:29] LABS: HEMATOCRIT 42.8 % (42.0-52.0); HEMOGLOBIN 14.5 g/dl (13.5-17.5); MEAN CORPUSCULAR HEMOGLOBIN 31.9 pg (27.0-33.0); MEAN CORPUSCULAR HGB CONC 33.9 g/dl (32.0-36.5); MEAN CORPUSCULAR VOLUME 94.3 fl (80.0-96.0); PLATELET COUNT, AUTOMATED 290 10^3/uL (150-450); RED BLOOD COUNT 4.54 10^6/uL (4.30-6.10); WHITE BLOOD COUNT 4.9 10^3/uL (4.0-10.0)
[2022-04-16 14:01] LABS: ALBUMIN 3.6 GM/DL (3.2-5.2); ALT/SGPT 66 U/L (12-78); BILIRUBIN,TOTAL 0.2 MG/DL (0.2-1.0); BLOOD UREA NITROGEN 5 MG/DL (7-18); CARBON DIOXIDE LEVEL 18 MEQ/L (21-32); CHLORIDE LEVEL 100 MEQ/L (98-107); CREATININE FOR GFR 0.68 MG/DL (0.70-1.30); GLOMERULAR FILTRATION RATE > 60.0 (>56); GLUCOSE, FASTING 200 MG/DL (70-100); POTASSIUM SERUM 3.7 MEQ/L (3.5-5.1); SODIUM LEVEL 129 MEQ/L (136-145); TOTAL PROTEIN 8.1 GM/DL (6.4-8.2)
== END ==
LOC: M LAB 12:32
PROVIDERS: ATTEND Nurse Practitioner Family
DX: L20.9 Atopic dermatitis, unspecified (principal)

== ENCOUNTER → 2022-07-29 | Outpatient (REF) | payer OTHER | LOC: M SFHCDERM 13:53 | PROVIDERS: ATTEND Physician Assistant | DX: D49.2 Neoplasm of unspecified behavior of bone, soft tissue, and skin (principal); Q82.5 Congenital non-neoplastic nevus ==

== ENCOUNTER 2022-10-02 17:50 | Emergency (ER) | payer OTHER ==
[~2022-10-02] VITALS: Ht 121.9 cm; Wt 51.8 kg
[2022-10-02 18:48] LABS: BASO # 0.1 10^3/uL (0.0-0.2); BASO % 0.3 % (0.0-1.0); EOS # 0.7 10^3/uL (0.0-0.5); EOS % 4.6 % (0.0-3.0); HEMATOCRIT 31.5 % (42.0-52.0); HEMOGLOBIN 10.3 g/dl (13.5-17.5); LYMPH # 0.9 10^3/uL (1.5-5.0); LYMPH % 5.8 % (24.0-44.0); MEAN CORPUSCULAR HGB CONC 32.7 g/dl (32.0-36.5); MEAN CORPUSCULAR VOLUME 94.9 fl (80.0-96.0); MONO % 6.2 % (2.0-8.0); NEUTROPHILS % 81.7 % (36.0-66.0); PLATELET COUNT, AUTOMATED 542 10^3/uL (150-450); RED BLOOD COUNT 3.32 10^6/uL (4.30-6.10); WHITE BLOOD COUNT 15.9 10^3/uL (4.0-10.0)
[2022-10-02 19:17] LABS: ALKALINE PHOSPHATASE 110 U/L (46-116); ALT/SGPT 12 U/L (7.0-40); AST/SGOT 33 U/L (<34); BILIRUBIN,DIRECT < 0.1 MG/DL (<0.4); BILIRUBIN,TOTAL < 0.2 MG/DL (0.3-1.2); BLOOD UREA NITROGEN 5 MG/DL (9-23); CALCIUM LEVEL 7.9 MG/DL (8.5-10.1); CARBON DIOXIDE LEVEL 21 MMOL/L (20-31); CHLORIDE LEVEL 103 MMOL/L (98-107); CREATININE FOR GFR 0.53 MG/DL (0.70-1.30); GLOMERULAR FILTRATION RATE > 60.0 (>56); GLUCOSE, FASTING 94 MG/DL (60-100); POTASSIUM SERUM 4.2 MMOL/L (3.5-5.1); SODIUM LEVEL 133 MMOL/L (136-145); TOTAL PROTEIN 6.9 G/DL (5.7-8.2)
[2022-10-02] MEDS ORDERED: GABAPENTIN 300 MG CAP PO ONE (20:35)
[2022-10-02 21:35] LABS: ETHYL ALCOHOL (ETHANOL) 0.054 % (0.000-0.010)
[2022-10-02 21:43] LABS: HEMOGLOBIN A1c 5.4 % (4.0-6.0)
[2022-10-02 22:45] VITALS: BP 174/93
[2022-10-02] MEDS ORDERED: NEUR300C PO (23:17)
== END 2022-10-02 23:42 | disposition home or self-care (01) ==
LOC: M ED 17:50 → EDBD 17:50 → M ED 23:42
DX: G62.9 Polyneuropathy, unspecified (principal); R60.9 Edema, unspecified; I10 Essential (primary) hypertension; L20.9 Atopic dermatitis, unspecified; F17.200 Nicotine dependence, unspecified, uncomplicated; Z79.51 Long term (current) use of inhaled steroids; Z79.899 Other long term (current) drug therapy

== ENCOUNTER → 2022-10-21 | Outpatient (REF) | payer OTHER ==
[~2022-10-21] MED LIST changes: +NEUR300C PO
[2022-10-21 14:50] LABS: BASO # 0.1 10^3/uL (0.0-0.2); BASO % 0.3 % (0.0-1.0); EOS # 1.2 10^3/uL (0.0-0.5); EOS % 8.5 % (0.0-3.0); HEMATOCRIT 31.3 % (42.0-52.0); HEMOGLOBIN 10.1 g/dl (13.5-17.5); LYMPH # 1.7 10^3/uL (1.5-5.0); LYMPH % 11.3 % (24.0-44.0); MEAN CORPUSCULAR HGB CONC 32.3 g/dl (32.0-36.5); MONO # 1.1 10^3/uL (0.0-0.8); MONO % 7.6 % (2.0-8.0); NEUTROPHILS # 10.4 10^3/uL (1.5-8.5); NEUTROPHILS % 70.9 % (36.0-66.0); PLATELET COUNT, AUTOMATED 635 10^3/uL (150-450); RED BLOOD COUNT 3.26 10^6/uL (4.30-6.10); WHITE BLOOD COUNT 14.7 10^3/uL (4.0-10.0)
[2022-10-21 15:30] LABS: ALKALINE PHOSPHATASE 113 U/L (46-116); ALT/SGPT 14 U/L (7.0-40); AST/SGOT 19 U/L (<34); BILIRUBIN,TOTAL < 0.2 MG/DL (0.3-1.2); BLOOD UREA NITROGEN 6 MG/DL (9-23); CALCIUM LEVEL 8.3 MG/DL (8.5-10.1); CARBON DIOXIDE LEVEL 25 MMOL/L (20-31); CHLORIDE LEVEL 104 MMOL/L (98-107); CREATININE FOR GFR 0.55 MG/DL (0.70-1.30); GLOMERULAR FILTRATION RATE > 60.0 (>56); GLUCOSE, FASTING 92 MG/DL (60-100); MAGNESIUM LEVEL 1.7 MG/DL (1.8-2.4); POTASSIUM SERUM 4.6 MMOL/L (3.5-5.1); SODIUM LEVEL 134 MMOL/L (136-145); TOTAL PROTEIN 8.2 G/DL (5.7-8.2)
== END ==
LOC: M SFHCADAM 08:14
PROVIDERS: ATTEND Nurse Practitioner Family
DX: L20.9 Atopic dermatitis, unspecified (principal)

== ENCOUNTER → 2022-11-15 | Outpatient (CLI) | payer MEDICAID | LOC: M OUTALCOH 07:25 | PROVIDERS: ATTEND Psychiatry & Neurology Psychiatry | DX: Z03.89 Encounter for observation for other suspected diseases and conditions ruled out (principal) ==

== ENCOUNTER 2022-11-22 10:07 | Outpatient (RCR) | payer MEDICAID | END 2022-12-19 | LOC: M OUTALCOH 10:07 | PROVIDERS: ATTEND Psychiatry & Neurology Psychiatry | DX: Z03.89 Encounter for observation for other suspected diseases and conditions ruled out (principal); Z72.0 Tobacco use ==

== ENCOUNTER → 2022-11-22 | Outpatient (CLI) | payer OTHER ==
[~2022-11-22] MED LIST changes: +PRED15SO24 PO; -PRED5SOL10 PO
[2022-11-22 10:05] LABS: HEMATOCRIT 38.1 % (42.0-52.0); MEAN CORPUSCULAR HEMOGLOBIN 29.3 pg (27.0-33.0); MEAN CORPUSCULAR HGB CONC 31.5 g/dl (32.0-36.5); MEAN CORPUSCULAR VOLUME 92.9 fl (80.0-96.0); PLATELET COUNT, AUTOMATED 324 10^3/uL (150-450)
[2022-11-22 11:41] LABS: ALBUMIN 3.3 G/DL (3.2-5.2); ALKALINE PHOSPHATASE 109 U/L (46-116); ALT/SGPT 19 U/L (7.0-40); AST/SGOT 20 U/L (<34); BILIRUBIN,DIRECT < 0.1 MG/DL (<0.4); BILIRUBIN,TOTAL 0.3 MG/DL (0.3-1.2); BLOOD UREA NITROGEN 7 MG/DL (9-23); CALCIUM LEVEL 8.8 MG/DL (8.5-10.1); CARBON DIOXIDE LEVEL 21 MMOL/L (20-31); CHLORIDE LEVEL 105 MMOL/L (98-107); CREATININE FOR GFR 0.73 MG/DL (0.70-1.30); GLOMERULAR FILTRATION RATE > 60.0 (>56); GLUCOSE, FASTING 138 MG/DL (60-100); PHOSPHORUS LEVEL 3.4 MG/DL (2.5-4.9); SODIUM LEVEL 135 MMOL/L (136-145)
== END ==
LOC: M LAB 09:21
PROVIDERS: ATTEND Physician Assistant
DX: L20.9 Atopic dermatitis, unspecified (principal)

== ENCOUNTER → 2022-12-16 | Outpatient (CLI) | payer OTHER ==
[~2022-12-16] MED LIST changes: +PROHANCE 279.3MG/ML 15ML VIAL As Ordered ONE
== END ==
LOC: M RAD 08:19
PROVIDERS: ATTEND Surgery Vascular Surgery
DX: I65.23 Occlusion and stenosis of bilateral carotid arteries (principal); G93.89 Other specified disorders of brain
CPT/HCPCS: 70553; 93880; A9576

== ENCOUNTER → 2022-12-16 | Outpatient (CLI) | payer OTHER ==
[~2022-12-16] MED LIST changes: -PROHANCE 279.3MG/ML 15ML VIAL As Ordered ONE
[2022-12-16 09:27] LABS: BASO # 0.1 10^3/uL (0.0-0.2); BASO % 0.6 % (0.0-1.0); EOS # 0.6 10^3/uL (0.0-0.5); EOS % 5.6 % (0.0-3.0); HEMATOCRIT 38.1 % (42.0-52.0); HEMOGLOBIN 11.8 g/dl (13.5-17.5); MEAN CORPUSCULAR HEMOGLOBIN 28.2 pg (27.0-33.0); MEAN CORPUSCULAR VOLUME 90.9 fl (80.0-96.0); MONO # 1.1 10^3/uL (0.0-0.8); MONO % 10.3 % (2.0-8.0); NEUTROPHILS # 6.7 10^3/uL (1.5-8.5); NEUTROPHILS % 63.6 % (36.0-66.0); PLATELET COUNT, AUTOMATED 447 10^3/uL (150-450); RED BLOOD COUNT 4.19 10^6/uL (4.30-6.10); WHITE BLOOD COUNT 10.5 10^3/uL (4.0-10.0)
[2022-12-16 09:54] LABS: ALBUMIN 2.8 G/DL (3.2-5.2); ALKALINE PHOSPHATASE 126 U/L (46-116); ALT/SGPT < 9 U/L (7.0-40); AST/SGOT 18 U/L (<34); BILIRUBIN,TOTAL < 0.2 MG/DL (0.3-1.2); BLOOD UREA NITROGEN 9 MG/DL (9-23); CALCIUM LEVEL 8.6 MG/DL (8.5-10.1); CARBON DIOXIDE LEVEL 23 MMOL/L (20-31); CHLORIDE LEVEL 106 MMOL/L (98-107); CREATININE FOR GFR 0.58 MG/DL (0.70-1.30); GLOMERULAR FILTRATION RATE > 60.0 (>56); GLUCOSE, FASTING 86 MG/DL (60-100); POTASSIUM SERUM 4.5 MMOL/L (3.5-5.1); SODIUM LEVEL 136 MMOL/L (136-145); TOTAL PROTEIN 7.9 G/DL (5.7-8.2)
== END ==
LOC: M LAB 08:21
PROVIDERS: ATTEND Physician Assistant
DX: Z79.899 Other long term (current) drug therapy (principal)

== ENCOUNTER 2022-12-29 03:22 | Emergency (ER) | payer OTHER ==
[~2022-12-29] VITALS: Ht 162.6 cm; Wt 54.2 kg
[2022-12-29 03:23] VITALS: BP 138/102
== END 2022-12-29 04:41 | disposition left against medical advice (07) ==
LOC: M ED 03:22
DX: Z53.21 Procedure and treatment not carried out due to patient leaving prior to being seen by health care provider (principal)

== ENCOUNTER 2023-05-04 11:47 | Emergency (ER) | payer OTHER ==
[~2023-05-04] VITALS: Ht 160 cm; Wt 49.9 kg
[2023-05-04] MEDS ORDERED: TRIA1CR80 (12:03)
[2023-05-04] MEDS ORDERED: FLUO0.05 (12:04)
[2023-05-04] MEDS ORDERED: DUPI300I (12:04)
[2023-05-04] MEDS ORDERED: ACETAMINOPHEN 500 MG TAB PO ONE (16:00)
[2023-05-04] MEDS ORDERED: IBUP-1022 PO (17:03)
[2023-05-04] MEDS ORDERED: OMEP-173 PO (17:03)
[2023-05-04 17:11] VITALS: BP 166/93; TEMP 98.1; O2SAT 100
== END 2023-05-04 17:12 | disposition home or self-care (01) ==
LOC: M ED 11:47
DX: K40.90 Unilateral inguinal hernia, without obstruction or gangrene, not specified as recurrent (principal); I10 Essential (primary) hypertension; C61 Malignant neoplasm of prostate; F17.200 Nicotine dependence, unspecified, uncomplicated; Z79.891 Long term (current) use of opiate analgesic; Z79.83 Long term (current) use of bisphosphonates; Z79.899 Other long term (current) drug therapy

== ENCOUNTER 2023-07-01 10:28 | Day surgery (SDC) | payer OTHER ==
[~2023-07-01] VITALS: Ht 162.6 cm; Wt 47.1 kg
[~2023-07-01 10:28] MED LIST changes: +ANOR1AER; +CelecoXIB 400 MG CAP PO ONE; +DUPI300I; +FLUO0.05; +IBUP-1022 PO; +MELO7.5T35 PO; +MYCO500T PO; +OMEP-173 PO; +PROP20TA72 PO; +TRAZ-257 PO; +TRIA1CR80; +ceFAZolin SOD 2 GM in IV 1 EA IV ONE
[2023-07-01] MEDS ORDERED: LR 1,000 ML IV SCH ×2 (11:20→15:50)
[2023-07-01] MEDS ORDERED: LIDOCAINE 1% SDV 30ML VIAL As Ordered ONE (13:07)
[2023-07-01] MEDS ORDERED: SUGAMMADEX SODIUM 500 MG/5 ML VIAL (BRIDION) As Ordered ONE (14:01)
[2023-07-01] MEDS ORDERED: ACETAMINOPHEN 1000MG 100ML IV BAG As Ordered ONE (14:01)
[2023-07-01] MEDS ORDERED: dexmedeTOMIDine (4MCG/ML)200MCG/50ML BTL (PRECEDEX) As Ordered ONE (14:01)
[2023-07-01] MEDS ORDERED: fentaNYL 250 MCG/5 ML INJECTION As Ordered ONE (14:01)
[2023-07-01] MEDS ORDERED: ONDANSETRON 4MG 2ML VIAL As Ordered ONE (14:01)
[2023-07-01] MEDS ORDERED: LIDOCAINE 2% 100MG/5ML SDV (FOR ANES.) As Ordered ONE (14:01)
[2023-07-01] MEDS ORDERED: propofoL 200 MG/20 ML VIAL As Ordered ONE (14:01)
[2023-07-01] MEDS ORDERED: METOCLOPRAMIDE INJ 10MG/2ML VIAL As Ordered ONE (14:01)
[2023-07-01] MEDS ORDERED: MIDAZOLAM INJ 2MG/2ML VIAL As Ordered ONE (14:01)
[2023-07-01] MEDS ORDERED: ROCURONIUM BROMIDE 50MG/5ML VIAL As Ordered ONE (14:01)
[2023-07-01] MEDS ORDERED: LABETALOL 100MG/20ML VIAL As Ordered ONE (14:26)
[2023-07-01] MEDS ORDERED: ONDANSETRON 4MG 2ML VIAL IV PRN (15:50)
[2023-07-01] MEDS ORDERED: oxyCODONE 5MG TAB PO PRN (15:50)
[2023-07-01] MEDS ORDERED: fentaNYL 100 MCG/2 ML INJECTION IV PRN (15:50)
[2023-07-01] MEDS ORDERED: HYDROMORPHONE HCL 0.5 MG/ 0.5 ML SYRINGE IV PRN (15:50)
[2023-07-01] MEDS ORDERED: hydrALAZINE 20MG/ML 1ML VIAL IV PRN (16:35)
[2023-07-01 16:46] VITALS: BP 170/95
[2023-07-01 17:05] VITALS: BP 177/93; TEMP 96.8; O2SAT 95
[2023-07-01] MEDS ORDERED: NORCO, ANEXSIA 5/325MG TABLET (HYDROcodone/ACETAMINOPHEN) PO PRN (21:20)
[2023-07-01] MEDS ORDERED: KETOROLAC 30 MG/ML 1ML VIAL IV SCH (22:00)
== END 2023-07-01 17:36 | disposition home or self-care (01) ==
LOC: M SDC 10:28
PROVIDERS: ATTEND Surgery
DX: K40.20 Bilateral inguinal hernia, without obstruction or gangrene, not specified as recurrent (principal); I10 Essential (primary) hypertension; F17.210 Nicotine dependence, cigarettes, uncomplicated; Z79.899 Other long term (current) drug therapy; Z79.52 Long term (current) use of systemic steroids
CPT/HCPCS: 49650; C1781; J0131; J0360; J0665; J0690; J1100; J1920; J2250; J2405; J2765; J3010

== ENCOUNTER → 2023-08-11 | Outpatient (CLI) | payer OTHER ==
[~2023-08-11] MED LIST changes: -CelecoXIB 400 MG CAP PO ONE; -ceFAZolin SOD 2 GM in IV 1 EA IV ONE
== END ==
LOC: M PLAIMG 14:40
PROVIDERS: ATTEND Physician Assistant
DX: M16.11 Unilateral primary osteoarthritis, right hip (principal); R10.31 Right lower quadrant pain

== ENCOUNTER 2023-08-22 03:14 | Inpatient (IN) | payer OTHER ==
[2023-08-22] VITALS (10 sets, daily range): BP systolic 111–150; BP diastolic 71–91; TEMP 97.7–99; O2SAT 94–96
[~2023-08-22] VITALS: Ht 162.6 cm; Wt 50.9 kg
[~2023-08-22 03:14] MED LIST changes: -DUPI300I; +DUPI300I IM
[2023-08-22] MEDS ORDERED: IBUP-1022 PO (03:49)
[2023-08-22 07:56] LABS: BASO % 0.2 % (0.0-1.0); EOS # 0.1 10^3/uL (0.0-0.5); HEMATOCRIT 41.5 % (42.0-52.0); HEMOGLOBIN 13.6 g/dl (13.5-17.5); LYMPH # 1.7 10^3/uL (1.5-5.0); LYMPH % 18.6 % (24.0-44.0); MEAN CORPUSCULAR HEMOGLOBIN 28.6 pg (27.0-33.0); MEAN CORPUSCULAR HGB CONC 32.8 g/dl (32.0-36.5); MEAN CORPUSCULAR VOLUME 87.4 fl (80.0-96.0); MONO # 0.8 10^3/uL (0.0-0.8); MONO % 8.5 % (2.0-8.0); NEUTROPHILS # 6.3 10^3/uL (1.5-8.5); NEUTROPHILS % 71.4 % (36.0-66.0); PLATELET COUNT, AUTOMATED 391 10^3/uL (150-450); RED BLOOD COUNT 4.75 10^6/uL (4.30-6.10); WHITE BLOOD COUNT 8.9 10^3/uL (4.0-10.0)
[2023-08-22] MEDS ORDERED: fentaNYL 100 MCG/2 ML INJECTION IV ONE (08:00)
[2023-08-22 08:07] LABS: PROTHROMBIN TIME 12.9 SECONDS (12.5-14.5)
[2023-08-22 08:08] LABS: PARTIAL THROMBOPLASTIN TIME 35.3 SECONDS (24.8-34.2)
[2023-08-22 08:23] LABS: BLOOD UREA NITROGEN 5 MG/DL (9-23); CALCIUM LEVEL 8.9 MG/DL (8.5-10.1); CARBON DIOXIDE LEVEL 22 MMOL/L (20-31); CHLORIDE LEVEL 105 MMOL/L (98-107); CREATININE FOR GFR 0.42 MG/DL (0.70-1.30); GLOMERULAR FILTRATION RATE > 60.0 (>56); GLUCOSE, FASTING 72 MG/DL (60-100); POTASSIUM SERUM 4.5 MMOL/L (3.5-5.1); SODIUM LEVEL 136 MMOL/L (136-145)
[2023-08-22 08:57] LABS: RSV AMPLIFICATION NEGATIVE (NEGATIVE)
[2023-08-22] MEDS: THIAMINE 100 MG TAB PO SCH ×3 (09:00→21:03)
[2023-08-22] MEDS: D5W/0.45% SODIUM CHLORIDE 1,000 ML IV SCH ×2 (09:34→17:21)
[2023-08-22] MEDS ORDERED: MED REC IN PROGRESS XX SCH (09:40)
[2023-08-22] MEDS ORDERED: OMEP-173 PO (10:01)
[2023-08-22] MEDS ORDERED: HOME MED LIST COMPLETE! XX SCH (10:10)
[2023-08-22] MEDS ORDERED: IPRATROPIUM 0.5MG/ALBUTEROL 2.5MG INH SOL UD 3ML (DUONEB) NEB PRN (10:55)
[2023-08-22] MEDS ORDERED: MORPHINE 4 MG/ML 1ML VIAL IV PRN ×2 (10:55→15:05)
[2023-08-22] MEDS ORDERED: MORPHINE 4 MG/ML 1ML VIAL IV ONE (10:55)
[2023-08-22] MEDS: NICOTINE 21MG/24HR 1 EA TRANSDERMAL TD SCH (10:55)
[2023-08-22] MEDS ORDERED: LORazepam 2 MG TAB PO PRN (10:55)
[2023-08-22] MEDS ORDERED: KETOROLAC 30 MG/ML 1ML VIAL IV ONE (10:55)
[2023-08-22] MEDS ORDERED: NITROGLYCERIN 2% OINT 1 GM *U/D* PKT TOP ONE (10:55)
[2023-08-22] MEDS ORDERED: fentaNYL 100 MCG/2 ML INJECTION As Ordered ONE ×2 (11:32→15:12)
[2023-08-22] MEDS ORDERED: MIDAZOLAM INJ 2MG/2ML VIAL As Ordered ONE (11:32)
[2023-08-22] MEDS ORDERED: LIDOCAINE 2% 100MG/5ML SDV (FOR ANES.) As Ordered ONE (11:36)
[2023-08-22] MEDS ORDERED: ONDANSETRON 4MG 2ML VIAL As Ordered ONE (11:36)
[2023-08-22] MEDS ORDERED: propofoL 200 MG/20 ML VIAL As Ordered ONE (11:36)
[2023-08-22] MEDS ORDERED: ROCURONIUM BROMIDE 50MG/5ML VIAL As Ordered ONE ×2 (11:36→13:00)
[2023-08-22] MEDS ORDERED: SUGAMMADEX SODIUM 500 MG/5 ML VIAL (BRIDION) As Ordered ONE (11:36)
[2023-08-22] MEDS ORDERED: ceFAZolin 2 GM/D5W 50 ML IV BAG As Ordered ONE (11:42)
[2023-08-22] MEDS ORDERED: TRANEXAMIC ACID 100 MG/ML 10ML VIAL As Ordered ONE ×2 (11:42→12:44)
[2023-08-22] MEDS ORDERED: VANCOMYCIN 1000MG/20ML VIAL As Ordered ONE ×2 (11:42→14:28)
[2023-08-22] MEDS ORDERED: ESMOLOL INJ 100MG/10ML VIAL As Ordered ONE (12:04)
[2023-08-22] MEDS ORDERED: HYDROmorphone HCL 2MG/ML 1ML VIAL As Ordered ONE (12:33)
[2023-08-22] MEDS ORDERED: ACETAMINOPHEN 1000MG 100ML IV BAG As Ordered ONE (13:34)
[2023-08-22] MEDS ORDERED: ACETAMINOPHEN TAB 650MG DOSE (2X325MG) PO PRN (15:05)
[2023-08-22] MEDS ORDERED: ONDANSETRON 4MG 2ML VIAL IV PRN ×2 (15:05→15:25)
[2023-08-22] MEDS ORDERED: SENNA 8.6 MG TAB (SENOKOT) PO PRN (15:05)
[2023-08-22] MEDS ORDERED: LABETALOL 100MG/20ML VIAL As Ordered ONE (15:17)
[2023-08-22] MEDS ORDERED: oxyCODONE 5MG TAB PO PRN (15:25)
[2023-08-22] MEDS ORDERED: fentaNYL 100 MCG/2 ML INJECTION IV PRN (15:25)
[2023-08-22] MEDS: oxyCODONE 5MG TAB PO PRN (17:10)
[2023-08-22] MEDS: ceFAZolin SOD 2 GM in IV 1 EA IV SCH (20:44)
[2023-08-22] MEDS: DOCUSATE SODIUM 100MG CAPSULE PO SCH (20:45)
[2023-08-22] MEDS: FOLIC ACID 1MG TAB PO SCH (20:54)
[2023-08-22] MEDS: MULTIVITAMINS/MINERALS THERAP 1 TAB PO SCH (20:55)
[2023-08-23] VITALS (9 sets, daily range): BP systolic 114–178; BP diastolic 73–91; TEMP 97.7–100.6; O2SAT 95–98
[2023-08-23] MEDS: oxyCODONE 5MG TAB PO PRN ×4 (03:40→17:52)
[2023-08-23] MEDS: D5W/0.45% SODIUM CHLORIDE 1,000 ML IV SCH ×2 (03:44→15:03)
[2023-08-23] MEDS: ceFAZolin SOD 2 GM in IV 1 EA IV SCH ×3 (03:45→22:03)
[2023-08-23] MEDS: IBUPROFEN 600MG TAB PO PRN ×2 (05:23→20:37)
[2023-08-23 06:55] LABS: HEMATOCRIT 33.1 % (42.0-52.0); MEAN CORPUSCULAR HEMOGLOBIN 29.2 pg (27.0-33.0); MEAN CORPUSCULAR HGB CONC 32.6 g/dl (32.0-36.5); MEAN CORPUSCULAR VOLUME 89.5 fl (80.0-96.0); PLATELET COUNT, AUTOMATED 330 10^3/uL (150-450); WHITE BLOOD COUNT 9.9 10^3/uL (4.0-10.0)
[2023-08-23 07:04] LABS: HEMOGLOBIN 10.8 g/dl (13.5-17.5)
[2023-08-23 07:10] LABS: BLOOD UREA NITROGEN 7 MG/DL (9-23); CALCIUM LEVEL 8.4 MG/DL (8.5-10.1); CARBON DIOXIDE LEVEL 28 MMOL/L (20-31); CHLORIDE LEVEL 103 MMOL/L (98-107); CREATININE FOR GFR 0.55 MG/DL (0.70-1.30); GLOMERULAR FILTRATION RATE > 60.0 (>56); GLUCOSE, FASTING 121 MG/DL (60-100); POTASSIUM SERUM 3.8 MMOL/L (3.5-5.1); SODIUM LEVEL 136 MMOL/L (136-145)
[2023-08-23] MEDS: DOCUSATE SODIUM 100MG CAPSULE PO SCH ×2 (07:56→20:37)
[2023-08-23] MEDS: MULTIVITAMINS/MINERALS THERAP 1 TAB PO SCH (07:56)
[2023-08-23] MEDS: THIAMINE 100 MG TAB PO SCH ×2 (07:57→20:37)
[2023-08-23] MEDS: FOLIC ACID 1MG TAB PO SCH (07:57)
[2023-08-23] MEDS: NICOTINE 21MG/24HR 1 EA TRANSDERMAL TD SCH (07:58)
[2023-08-23] MEDS: HEPARIN SOD (PORCINE) 5000UNITS/ML 1ML VIAL/SYRINGE SC SCH (20:36)
[2023-08-23] MEDS ORDERED: DUPIXENT 300 MG/2 ML IM SCH (21:00)
[2023-08-24] MEDS: D5W/0.45% SODIUM CHLORIDE 1,000 ML IV SCH (00:24)
[2023-08-24] MEDS: ceFAZolin SOD 2 GM in IV 1 EA IV SCH ×2 (04:31→12:47)
[2023-08-24] MEDS: IBUPROFEN 600MG TAB PO PRN (04:34)
[2023-08-24] MEDS ORDERED: PERCOCET 5MG/325MG TAB PO PRN ×2 (04:40→04:45)
[2023-08-24 05:30] VITALS: BP 157/85; TEMP 99; O2SAT 95
[2023-08-24 06:22] LABS: HEMATOCRIT 31.6 % (42.0-52.0); HEMOGLOBIN 10.3 g/dl (13.5-17.5); MEAN CORPUSCULAR HEMOGLOBIN 29.2 pg (27.0-33.0); MEAN CORPUSCULAR HGB CONC 32.6 g/dl (32.0-36.5); MEAN CORPUSCULAR VOLUME 89.5 fl (80.0-96.0); PLATELET COUNT, AUTOMATED 275 10^3/uL (150-450); RED BLOOD COUNT 3.53 10^6/uL (4.30-6.10); WHITE BLOOD COUNT 9.2 10^3/uL (4.0-10.0)
[2023-08-24] MEDS: MULTIVITAMINS/MINERALS THERAP 1 TAB PO SCH (08:13)
[2023-08-24] MEDS: FOLIC ACID 1MG TAB PO SCH (08:13)
[2023-08-24] MEDS: THIAMINE 100 MG TAB PO SCH (08:13)
[2023-08-24] MEDS: DOCUSATE SODIUM 100MG CAPSULE PO SCH (08:13)
[2023-08-24] MEDS: NICOTINE 21MG/24HR 1 EA TRANSDERMAL TD SCH (08:14)
[2023-08-24] MEDS: HEPARIN SOD (PORCINE) 5000UNITS/ML 1ML VIAL/SYRINGE SC SCH (08:14)
[2023-08-24 08:20] VITALS: BP 155/76
[2023-08-24] MEDS ORDERED: MAGNESIUM CITRATE 300ML BTL PO ONE (09:00)
[2023-08-24] MEDS ORDERED: OMEPRAZOLE 20MG CAP PO SCH (09:00)
[2023-08-24] MEDS ORDERED: SENOKOT S TAB PO SCH (09:00)
[2023-08-24] MEDS ORDERED: PROPRANOLOL 20 MG TAB PO SCH (09:00)
[2023-08-24] MEDS ORDERED: CEFA500C2 PO (11:15)
[2023-08-24] MEDS ORDERED: ECOT81TA5 PO (12:51)
[2023-08-24] MEDS ORDERED: PERCOCET PO (12:51)
[2023-08-24 14:00] VITALS: BP 144/76; TEMP 100.9; O2SAT 100
[2023-08-24] MEDS ORDERED: traZODone 100 MG TAB PO SCH (21:00)
== END 2023-08-24 17:50 | disposition home health service (06) | DRG 301 ==
LOC: M ED 03:14 → M ED INP 09:13 → M MS5PR 15:45
PROVIDERS: ADMIT General Practice; ATTEND Student in an Organized Health Care Education/Training Program
PROC: 0SRR0JZ Replacement of Right Hip Joint, Femoral Surface with Synthetic Substitute, Open Approach (ICD-10-PCS; principal; 2023-08-22 10:51)
DX: S72.041A Displaced fracture of base of neck of right femur, initial encounter for closed fracture (principal); I10 Essential (primary) hypertension; W01.0XXA Fall on same level from slipping, tripping and stumbling without subsequent striking against object, initial encounter; Y92.009 Unspecified place in unspecified non-institutional (private) residence as the place of occurrence of the external cause; F17.210 Nicotine dependence, cigarettes, uncomplicated; Z71.6 Tobacco abuse counseling; F10.10 Alcohol abuse, uncomplicated; J44.9 Chronic obstructive pulmonary disease, unspecified; I16.0 Hypertensive urgency; M06.4 Inflammatory polyarthropathy; L30.9 Dermatitis, unspecified; M16.11 Unilateral primary osteoarthritis, right hip; F32.A Depression, unspecified; F41.9 Anxiety disorder, unspecified; Z79.899 Other long term (current) drug therapy; Z20.822 Contact with and (suspected) exposure to COVID-19; R50.9 Fever, unspecified

== ENCOUNTER → 2023-09-01 | Outpatient (CLI) | payer OTHER ==
[~2023-09-01] MED LIST changes: +CEFA500C2 PO; +ECOT81TA5 PO; +PERCOCET PO
== END ==
LOC: M SOG 08:01
PROVIDERS: ATTEND Physician Assistant
DX: M25.551 Pain in right hip (principal)

== ENCOUNTER → 2023-09-29 | Outpatient (CLI) | payer OTHER | LOC: M SOG 07:56 | PROVIDERS: ATTEND Physician Assistant | DX: Z96.641 Presence of right artificial hip joint (principal) ==

== ENCOUNTER → 2023-10-18 | Outpatient (CLI) | payer OTHER | LOC: M SOG 12:56 | PROVIDERS: ATTEND Physician Assistant | DX: M25.552 Pain in left hip (principal); M25.562 Pain in left knee ==

== ENCOUNTER → 2023-12-15 | Outpatient (CLI) | payer OTHER | LOC: M WHC 08:30 | PROVIDERS: ATTEND Physician Assistant | DX: S72.001D Fracture of unspecified part of neck of right femur, subsequent encounter for closed fracture with routine healing (principal); M85.89 Other specified disorders of bone density and structure, multiple sites ==

== ENCOUNTER → 2023-12-15 | Outpatient (CLI) | payer OTHER ==
[2023-12-15 13:40] LABS: BASO % 0.4 % (0.0-1.0); EOS # 0.2 10^3/uL (0.0-0.5); HEMOGLOBIN 14.7 g/dl (13.5-17.5); LYMPH # 1.5 10^3/uL (1.5-5.0); LYMPH % 20.7 % (24.0-44.0); MEAN CORPUSCULAR HEMOGLOBIN 28.1 pg (27.0-33.0); MEAN CORPUSCULAR VOLUME 87.8 fl (80.0-96.0); MONO # 0.6 10^3/uL (0.0-0.8); MONO % 8.3 % (2.0-8.0); NEUTROPHILS % 67.3 % (36.0-66.0); PLATELET COUNT, AUTOMATED 343 10^3/uL (150-450); RED BLOOD COUNT 5.24 10^6/uL (4.30-6.10); WHITE BLOOD COUNT 7.4 10^3/uL (4.0-10.0)
[2023-12-15 13:46] LABS: ALBUMIN 3.9 G/DL (3.2-5.2); ALKALINE PHOSPHATASE 104 U/L (46-116); ALT/SGPT < 9 U/L (7.0-40); AST/SGOT 18 U/L (<34); BILIRUBIN,TOTAL 0.2 MG/DL (0.3-1.2); BLOOD UREA NITROGEN 8 MG/DL (9-23); CALCIUM LEVEL 9.7 MG/DL (8.5-10.1); CARBON DIOXIDE LEVEL 28 MMOL/L (20-31); CHLORIDE LEVEL 102 MMOL/L (98-107); CHOLESTEROL LEVEL 146 MG/DL (<200); CHOLESTEROL RISK RATIO 2.87 (<5); CREATININE FOR GFR 0.68 MG/DL (0.70-1.30); FREE T4 1.07 NG/DL (0.89-1.76); GLOMERULAR FILTRATION RATE > 60.0 (>56); GLUCOSE, FASTING 101 MG/DL (60-100); HDL CHOLESTEROL 50.8 MG/DL (>40); LDL CHOLESTEROL 77.6 MG/DL (<100); NON-HDL-C 95.2 MG/DL; POTASSIUM SERUM 4.4 MMOL/L (3.5-5.1); PSA SCREENING 0.93 NG/ML (< 4.00); SODIUM LEVEL 136 MMOL/L (136-145); THYROID STIMULATING HORMONE 1.721 uIU/ML (0.55-4.78); TOTAL 25(OH) VITAMIN D 9.2 NG/ML (20.0-100.0); TOTAL PROTEIN 7.3 G/DL (5.7-8.2); TRIGLYCERIDES LEVEL 88 MG/DL (<150)
== END ==
LOC: M PLALAB 08:36
PROVIDERS: ATTEND Physician Assistant
DX: I10 Essential (primary) hypertension (principal); Z13.220 Encounter for screening for lipoid disorders; R63.4 Abnormal weight loss; Z12.5 Encounter for screening for malignant neoplasm of prostate

== ENCOUNTER → 2023-12-30 | Outpatient (CLI) | payer OTHER | LOC: M RAD 14:29 | PROVIDERS: ATTEND Physician Assistant | DX: Z12.2 Encounter for screening for malignant neoplasm of respiratory organs (principal); F17.200 Nicotine dependence, unspecified, uncomplicated ==

== ENCOUNTER → 2024-01-11 | Outpatient (CLI) | payer OTHER | LOC: M SOG 10:15 | PROVIDERS: ATTEND Orthopaedic Surgery | DX: Z96.652 Presence of left artificial knee joint (principal); Z96.641 Presence of right artificial hip joint; M16.12 Unilateral primary osteoarthritis, left hip; M79.89 Other specified soft tissue disorders ==

== ENCOUNTER → 2024-01-24 | Outpatient (CLI) | payer OTHER ==
[~2024-01-24] MED LIST changes: +ONDA-282 PO; -ONDA4TAB6 PO
== END ==
LOC: M PLAIMG 06:37
PROVIDERS: ATTEND Orthopaedic Surgery
DX: M16.12 Unilateral primary osteoarthritis, left hip (principal)

== ENCOUNTER → 2024-01-26 | Outpatient (CLI) | payer OTHER ==
[2024-01-26 14:31] LABS: BASO % 0.4 % (0.0-1.0); EOS # 0.1 10^3/uL (0.0-0.5); EOS % 0.7 % (0.0-3.0); HEMATOCRIT 45.2 % (42.0-52.0); HEMOGLOBIN 15.3 g/dl (13.5-17.5); LYMPH # 1.4 10^3/uL (1.5-5.0); LYMPH % 20.4 % (24.0-44.0); MEAN CORPUSCULAR HEMOGLOBIN 30.1 pg (27.0-33.0); MEAN CORPUSCULAR HGB CONC 33.8 g/dl (32.0-36.5); MONO # 0.7 10^3/uL (0.0-0.8); MONO % 9.4 % (2.0-8.0); NEUTROPHILS # 4.8 10^3/uL (1.5-8.5); NEUTROPHILS % 68.8 % (36.0-66.0); PLATELET COUNT, AUTOMATED 261 10^3/uL (150-450); RED BLOOD COUNT 5.08 10^6/uL (4.30-6.10); WHITE BLOOD COUNT 6.9 10^3/uL (4.0-10.0)
[2024-01-26 14:53] LABS: C REACTIVE PROTEIN QUANTITATIV < 0.40 MG/DL (<1.0)
[2024-01-26 14:55] LABS: ALBUMIN 3.6 G/DL (3.2-5.2); ALKALINE PHOSPHATASE 100 U/L (46-116); ALT/SGPT 10 U/L (7.0-40); AST/SGOT 16 U/L (<34); BILIRUBIN,TOTAL 0.4 MG/DL (0.3-1.2); BLOOD UREA NITROGEN 8 MG/DL (9-23); CALCIUM LEVEL 9.1 MG/DL (8.5-10.1); CARBON DIOXIDE LEVEL 27 MMOL/L (20-31); CHLORIDE LEVEL 105 MMOL/L (98-107); CREATININE FOR GFR 0.67 MG/DL (0.70-1.30); GLOMERULAR FILTRATION RATE > 60.0 (>56); GLUCOSE, FASTING 114 MG/DL (60-100); POTASSIUM SERUM 3.8 MMOL/L (3.5-5.1); SODIUM LEVEL 138 MMOL/L (136-145); TESTOSTERONE 442 NG/DL (241-827); TOTAL PROTEIN 6.9 G/DL (5.7-8.2)
== END ==
LOC: M LAB 13:22
PROVIDERS: ATTEND Orthopaedic Surgery
DX: M16.12 Unilateral primary osteoarthritis, left hip (principal)

== ENCOUNTER 2024-02-08 08:03 | Outpatient (RCR) | payer OTHER ==
[2024-02-17] MEDS ORDERED: DUPI300P (07:39)
[2024-02-17] MEDS ORDERED: LISI10TA22 PO (07:39)
[2024-02-17] MEDS ORDERED: D-3-50003 PO (07:39)
[2024-02-17] MEDS ORDERED: ECOT81TA5 PO (07:39)
[2024-02-17] MEDS ORDERED: NAPR-885 PO (10:05)
== END 2024-02-19 ==
LOC: M PT 08:03
PROVIDERS: ATTEND Orthopaedic Surgery
DX: M16.12 Unilateral primary osteoarthritis, left hip (principal)

== ENCOUNTER 2024-02-27 06:05 | Observation (INO) | payer OTHER ==
[2024-02-27] VITALS (7 sets, daily range): BP systolic 156–178; BP diastolic 82–104; TEMP 96.6–97.9; O2SAT 94–99
[~2024-02-27] VITALS: Ht 162.6 cm; Wt 44.2 kg
[~2024-02-27 06:05] MED LIST changes: +D-3-50003 PO; +DUPI300P INJ; +LISI10TA22 PO; +NAPR-885 PO
[2024-02-27] MEDS ORDERED: DOCU100C16 PO (07:21)
[2024-02-27] MEDS ORDERED: LEVOTAB10 PO (07:21)
[2024-02-27] MEDS: LR 1,000 ML IV SCH ×3 (07:21→11:22)
[2024-02-27] MEDS ORDERED: fentaNYL 250 MCG/5 ML INJECTION As Ordered ONE (07:22)
[2024-02-27] MEDS ORDERED: propofoL 200 MG/20 ML VIAL As Ordered ONE (07:22)
[2024-02-27] MEDS ORDERED: LIDOCAINE 2% 100MG/5ML SDV (FOR ANES.) As Ordered ONE (07:22)
[2024-02-27] MEDS ORDERED: ROCURONIUM BROMIDE 50MG/5ML VIAL As Ordered ONE (07:22)
[2024-02-27] MEDS ORDERED: MIDAZOLAM INJ 2MG/2ML VIAL As Ordered ONE (07:22)
[2024-02-27] MEDS ORDERED: ONDANSETRON 4MG 2ML VIAL As Ordered ONE (07:22)
[2024-02-27] MEDS ORDERED: HOME MED LIST COMPLETE! XX SCH (07:25)
[2024-02-27] MEDS: ceFAZolin SOD 2 GM in IV 1 EA IV ONE (07:54)
[2024-02-27] MEDS: TRANEXAMIC ACID 100 MG/ML 10ML VIAL IV ONE (08:04)
[2024-02-27] MEDS ORDERED: dexmedeTOMIDine (4MCG/ML)200MCG/50ML BTL (PRECEDEX) As Ordered ONE (08:24)
[2024-02-27] MEDS ORDERED: ACETAMINOPHEN 1000MG 100ML IV BAG As Ordered ONE (08:24)
[2024-02-27] MEDS ORDERED: KETOROLAC 60MG 2ML VIAL As Ordered ONE (08:24)
[2024-02-27] MEDS ORDERED: SUGAMMADEX SODIUM 500 MG/5 ML VIAL (BRIDION) As Ordered ONE (08:24)
[2024-02-27] MEDS: TRANEXAMIC ACID 100 MG/ML 10ML VIAL As Ordered ONE (08:30)
[2024-02-27] MEDS ORDERED: LABETALOL 100MG/20ML VIAL As Ordered ONE (08:38)
[2024-02-27] MEDS ORDERED: HYDROmorphone HCL 2MG/ML 1ML VIAL As Ordered ONE (08:58)
[2024-02-27] MEDS: ROPIVA 100MG/KETOR 15MG/EPINEPHRINE 0.3MG IN NS 50ML SYRINGE PA ONE (09:25)
[2024-02-27] MEDS ORDERED: PHENYLephrine 500MCG 5ML (100MCG/ML) SYRINGE As Ordered ONE (09:35)
[2024-02-27] MEDS ORDERED: ePHEDrine SULFATE 25 MG/5 ML(5MG/ML) SYRINGE As Ordered ONE (09:35)
[2024-02-27] MEDS ORDERED: SENNA 8.6 MG TAB (SENOKOT) PO PRN (09:35)
[2024-02-27] MEDS ORDERED: ONDANSETRON 4MG 2ML VIAL IV PRN (10:00)
[2024-02-27] MEDS ORDERED: oxyCODONE 5MG TAB PO PRN (10:00)
[2024-02-27] MEDS ORDERED: fentaNYL 100 MCG/2 ML INJECTION IV PRN (10:00)
[2024-02-27] MEDS ORDERED: HYDROMORPHONE HCL 0.5 MG/ 0.5 ML SYRINGE IV PRN (10:00)
[2024-02-27] MEDS: ACETAMINOPHEN TAB 650MG DOSE (2X325MG) PO SCH (11:22)
[2024-02-27] MEDS: oxyCODONE 5MG TAB PO PRN ×2 (11:22→23:11)
[2024-02-27] MEDS: ONDANSETRON 4MG 2ML VIAL IV PRN (13:13)
[2024-02-27] MEDS ORDERED: LABETALOL 100MG/20ML VIAL IV PRN (14:30)
[2024-02-27] MEDS: NICOTINE 7 MG/24 HR TRANSDERMAL TD SCH (16:06)
[2024-02-27] MEDS: ceFAZolin SOD 2 GM in IV 1 EA IV SCH (16:06)
[2024-02-27] MEDS: traZODone 100 MG TAB PO SCH (20:15)
[2024-02-27] MEDS: DOCUSATE SODIUM 100MG CAPSULE PO SCH (20:15)
[2024-02-27] MEDS: ASPIRIN 81MG ENTERIC TABLET PO SCH (20:15)
[2024-02-28 00:27] VITALS: BP 118/76; TEMP 97.9; O2SAT 97
[2024-02-28 04:35] VITALS: BP 170/90; TEMP 97.7; O2SAT 98
[2024-02-28 07:02] LABS: HEMATOCRIT 36.2 % (42.0-52.0); HEMOGLOBIN 12.6 g/dl (13.5-17.5); MEAN CORPUSCULAR HEMOGLOBIN 31.6 pg (27.0-33.0); MEAN CORPUSCULAR HGB CONC 34.8 g/dl (32.0-36.5); MEAN CORPUSCULAR VOLUME 90.7 fl (80.0-96.0); PLATELET COUNT, AUTOMATED 153 10^3/uL (150-450); RED BLOOD COUNT 3.99 10^6/uL (4.30-6.10); WHITE BLOOD COUNT 9.2 10^3/uL (4.0-10.0)
[2024-02-28 07:38] LABS: ALBUMIN 2.5 G/DL (3.2-5.2); ALKALINE PHOSPHATASE 85 U/L (46-116); ALT/SGPT 20 U/L (7.0-40); AST/SGOT 40 U/L (<34); BILIRUBIN,TOTAL 0.5 MG/DL (0.3-1.2); BLOOD UREA NITROGEN 10 MG/DL (9-23); CALCIUM LEVEL 7.8 MG/DL (8.5-10.1); CARBON DIOXIDE LEVEL 30 MMOL/L (20-31); CHLORIDE LEVEL 100 MMOL/L (98-107); CREATININE FOR GFR 0.62 MG/DL (0.70-1.30); GLOMERULAR FILTRATION RATE > 60.0 (>56); GLUCOSE, FASTING 123 MG/DL (60-100); POTASSIUM SERUM 3.7 MMOL/L (3.5-5.1); SODIUM LEVEL 133 MMOL/L (136-145)
[2024-02-28 08:30] VITALS: BP 164/74; TEMP 97.9; O2SAT 96
[2024-02-28] MEDS: ASCORBIC ACID 500 MG TAB PO SCH (09:18)
[2024-02-28] MEDS: FERROUS SULFATE 325MG TAB PO SCH (09:19)
[2024-02-28] MEDS: PROPRANOLOL 20 MG TAB PO SCH (09:24)
[2024-02-28 12:00] VITALS: BP 156/76; TEMP 97.7; O2SAT 94
[2024-02-28 20:48] VITALS: BP 150/79; TEMP 97.3; O2SAT 93
[2024-02-29 04:45] VITALS: BP 146/80; TEMP 97.3; O2SAT 93
[2024-02-29 06:55] LABS: HEMOGLOBIN 13.7 g/dl (13.5-17.5); MEAN CORPUSCULAR HEMOGLOBIN 30.6 pg (27.0-33.0); MEAN CORPUSCULAR HGB CONC 33.4 g/dl (32.0-36.5); MEAN CORPUSCULAR VOLUME 91.7 fl (80.0-96.0); PLATELET COUNT, AUTOMATED 115 10^3/uL (150-450); RED BLOOD COUNT 4.47 10^6/uL (4.30-6.10); WHITE BLOOD COUNT 8.7 10^3/uL (4.0-10.0)
[2024-02-29 07:26] LABS: ALBUMIN 2.4 G/DL (3.2-5.2); ALKALINE PHOSPHATASE 85 U/L (46-116); ALT/SGPT 14 U/L (7.0-40); AST/SGOT 37 U/L (<34); BILIRUBIN,TOTAL 0.8 MG/DL (0.3-1.2); BLOOD UREA NITROGEN 6 MG/DL (9-23); CALCIUM LEVEL 8.2 MG/DL (8.5-10.1); CARBON DIOXIDE LEVEL 30 MMOL/L (20-31); CHLORIDE LEVEL 101 MMOL/L (98-107); CREATININE FOR GFR 0.55 MG/DL (0.70-1.30); GLOMERULAR FILTRATION RATE > 60.0 (>56); GLUCOSE, FASTING 86 MG/DL (60-100); POTASSIUM SERUM 3.6 MMOL/L (3.5-5.1); SODIUM LEVEL 135 MMOL/L (136-145); TOTAL PROTEIN 5.2 G/DL (5.7-8.2)
[2024-02-29 08:14] VITALS: BP 129/83
[2024-02-29] MEDS ORDERED: ASPI81TAEC PO (12:07)
[2024-02-29] MEDS ORDERED: OXYC1TAB23 PO (12:07)
== END 2024-02-29 12:30 | disposition home or self-care (01) ==
LOC: M SDC 06:05 → M ED INP 06:06 → M MS5PR 11:00
PROVIDERS: ADMIT Orthopaedic Surgery; ATTEND Orthopaedic Surgery
DX: M16.12 Unilateral primary osteoarthritis, left hip (principal); R11.2 Nausea with vomiting, unspecified; G89.18 Other acute postprocedural pain; Z96.643 Presence of artificial hip joint, bilateral; I10 Essential (primary) hypertension; M54.9 Dorsalgia, unspecified; L40.9 Psoriasis, unspecified; F32.A Depression, unspecified; G62.9 Polyneuropathy, unspecified; C61 Malignant neoplasm of prostate; F41.0 Panic disorder [episodic paroxysmal anxiety]; G47.00 Insomnia, unspecified; Z79.899 Other long term (current) drug therapy; Z79.82 Long term (current) use of aspirin; Z79.1 Long term (current) use of non-steroidal anti-inflammatories (NSAID); F17.219 Nicotine dependence, cigarettes, with unspecified nicotine-induced disorders
CPT/HCPCS: 27130; 36415; 72170; 80053; 85027; 88300; 88311; 96374; 96375; 96376; 97110; 97116; 97161; 97165; 97530; 97535; C1776; J0131; J0690; J1100; J1170; J1885; J1920; J2250; J2371; J2405; J3010

== ENCOUNTER → 2024-03-12 | Outpatient (CLI) | payer OTHER ==
[~2024-03-12] MED LIST changes: +ASPI81TAEC PO; +DOCU100C16 PO; +LEVOTAB10 PO; +OXYC1TAB23 PO
== END ==
LOC: M SOG 07:52
PROVIDERS: ATTEND Orthopaedic Surgery
DX: Z47.1 Aftercare following joint replacement surgery (principal)

== ENCOUNTER → 2024-05-14 | Outpatient (CLI) | payer OTHER | LOC: M OUTALCOH 09:11 | PROVIDERS: ATTEND Psychiatry & Neurology Psychiatry | DX: Z03.89 Encounter for observation for other suspected diseases and conditions ruled out (principal); Z72.0 Tobacco use ==

== ENCOUNTER → 2024-05-18 | Outpatient (CLI) | payer OTHER | LOC: M SOG 10:32 | PROVIDERS: ATTEND Orthopaedic Surgery | DX: M25.531 Pain in right wrist (principal); M25.532 Pain in left wrist ==

== ENCOUNTER 2024-05-23 13:21 | Outpatient (RCR) | payer OTHER | END 2024-06-21 | LOC: M OUTALCOH 13:21 | PROVIDERS: ATTEND Psychiatry & Neurology Psychiatry | DX: Z03.89 Encounter for observation for other suspected diseases and conditions ruled out (principal) ==

== ENCOUNTER → 2024-05-23 | Outpatient (CLI) | payer OTHER ==
[2024-05-23 14:54] LABS: BASO % 0.3 % (0.0-1.0); EOS # 0.1 10^3/uL (0.0-0.5); EOS % 0.6 % (0.0-3.0); HEMATOCRIT 46.5 % (42.0-52.0); HEMOGLOBIN 15.2 g/dl (13.5-17.5); LYMPH % 23.3 % (24.0-44.0); MEAN CORPUSCULAR HEMOGLOBIN 31.8 pg (27.0-33.0); MEAN CORPUSCULAR HGB CONC 32.7 g/dl (32.0-36.5); MEAN CORPUSCULAR VOLUME 97.3 fl (80.0-96.0); MONO # 0.7 10^3/uL (0.0-0.8); MONO % 8.1 % (2.0-8.0); NEUTROPHILS # 5.9 10^3/uL (1.5-8.5); NEUTROPHILS % 67.2 % (36.0-66.0); PLATELET COUNT, AUTOMATED 393 10^3/uL (150-450); RED BLOOD COUNT 4.78 10^6/uL (4.30-6.10); WHITE BLOOD COUNT 8.7 10^3/uL (4.0-10.0)
[2024-05-23 15:05] LABS: INR 1.01
[2024-05-23 15:34] LABS: ALBUMIN 3.9 G/DL (3.2-5.2); ALKALINE PHOSPHATASE 99 U/L (46-116); ALT/SGPT 10 U/L (7.0-40); AST/SGOT 14 U/L (<34); BILIRUBIN,TOTAL 0.3 MG/DL (0.3-1.2); BLOOD UREA NITROGEN 8 MG/DL (9-23); CALCIUM LEVEL 9.6 MG/DL (8.5-10.1); CARBON DIOXIDE LEVEL 28 MMOL/L (20-31); CHLORIDE LEVEL 103 MMOL/L (98-107); GLOMERULAR FILTRATION RATE > 60.0 (>56); GLUCOSE, FASTING 71 MG/DL (60-100); POTASSIUM SERUM 4.1 MMOL/L (3.5-5.1); SODIUM LEVEL 135 MMOL/L (136-145)
[2024-05-23 15:51] LABS: HEMOGLOBIN A1c 4.9 % (4.0-6.0)
== END ==
LOC: M PLALAB 13:35
PROVIDERS: ATTEND Orthopaedic Surgery
DX: G56.03 Carpal tunnel syndrome, bilateral upper limbs (principal)

== ENCOUNTER → 2024-06-08 | Outpatient (REF) | LOC: M PLAIMG 08:28 | PROVIDERS: ATTEND Internal Medicine | DX: M79.605 Pain in left leg (principal) ==

== ENCOUNTER → 2024-06-15 | Outpatient (CLI) | payer OTHER ==
[2024-06-15 13:04] LABS: BASO % 0.6 % (0.0-1.0); EOS # 0.1 10^3/uL (0.0-0.5); EOS % 0.8 % (0.0-3.0); HEMOGLOBIN 15.2 g/dl (13.5-17.5); LYMPH # 1.4 10^3/uL (1.5-5.0); LYMPH % 20.2 % (24.0-44.0); MEAN CORPUSCULAR HEMOGLOBIN 32.2 pg (27.0-33.0); MEAN CORPUSCULAR VOLUME 97.5 fl (80.0-96.0); MONO # 0.5 10^3/uL (0.0-0.8); MONO % 7.6 % (2.0-8.0); NEUTROPHILS # 4.9 10^3/uL (1.5-8.5); NEUTROPHILS % 69.8 % (36.0-66.0); PLATELET COUNT, AUTOMATED 242 10^3/uL (150-450); RED BLOOD COUNT 4.72 10^6/uL (4.30-6.10); WHITE BLOOD COUNT 7.1 10^3/uL (4.0-10.0)
[2024-06-15 13:34] LABS: ALBUMIN 3.8 G/DL (3.2-5.2); ALKALINE PHOSPHATASE 91 U/L (40-129); ALT/SGPT 14 U/L (7.0-40); AST/SGOT 34 U/L (<34); BILIRUBIN,TOTAL 0.3 MG/DL (0.3-1.2); BLOOD UREA NITROGEN 5 MG/DL (9-23); CALCIUM LEVEL 9.4 MG/DL (8.5-10.1); CARBON DIOXIDE LEVEL 26 MMOL/L (20-31); CHLORIDE LEVEL 105 MMOL/L (98-107); CREATININE FOR GFR 0.59 MG/DL (0.70-1.30); GLOMERULAR FILTRATION RATE > 60.0 (>56); GLUCOSE, FASTING 82 MG/DL (60-100); POTASSIUM SERUM 5.1 MMOL/L (3.5-5.1); PSA SCREENING 1.09 NG/ML (< 4.00); SODIUM LEVEL 136 MMOL/L (136-145); TOTAL PROTEIN 7.3 G/DL (5.7-8.2)
[2024-06-15 13:36] LABS: TOTAL 25(OH) VITAMIN D 34.9 NG/ML (20.0-100.0)
== END ==
LOC: M PLALAB 11:03
PROVIDERS: ATTEND Physician Assistant
DX: R35.0 Frequency of micturition (principal); I10 Essential (primary) hypertension; F17.200 Nicotine dependence, unspecified, uncomplicated; G56.00 Carpal tunnel syndrome, unspecified upper limb

== ENCOUNTER 2024-06-19 06:05 | Day surgery (SDC) | payer OTHER ==
[~2024-06-19] VITALS: Ht 162.6 cm; Wt 47.2 kg
[2024-06-19] MEDS ORDERED: NS 1,000 ML IV SCH (06:15)
[2024-06-19] MEDS ORDERED: ONDANSETRON 4MG 2ML VIAL As Ordered ONE (06:31)
[2024-06-19] MEDS ORDERED: LIDOCAINE 2% 100MG/5ML SDV (FOR ANES.) As Ordered ONE (06:32)
[2024-06-19] MEDS ORDERED: dexmedeTOMIDine (4MCG/ML)200MCG/50ML BTL (PRECEDEX) As Ordered ONE (06:32)
[2024-06-19] MEDS ORDERED: VASOPRESSIN INJ 20UNITS/ML 1ML VIAL As Ordered ONE (06:32)
[2024-06-19] MEDS ORDERED: propofoL 200 MG/20 ML VIAL As Ordered ONE (06:32)
[2024-06-19] MEDS ORDERED: fentaNYL 100 MCG/2 ML INJECTION As Ordered ONE (07:04)
[2024-06-19] MEDS ORDERED: MIDAZOLAM INJ 2MG/2ML VIAL As Ordered ONE (07:04)
[2024-06-19] MEDS: ceFAZolin 2 GM/D5W 50 ML IV BAG As Ordered ONE (07:51)
[2024-06-19] MEDS ORDERED: ACETAMINOPHEN 1000MG 100ML IV BAG As Ordered ONE (08:04)
[2024-06-19] MEDS: BACITRACIN OINTMENT 30GM TUBE As Ordered ONE (08:16)
[2024-06-19] MEDS ORDERED: ONDANSETRON 4MG 2ML VIAL IV PRN (08:20)
[2024-06-19] MEDS ORDERED: fentaNYL 100 MCG/2 ML INJECTION IV PRN (08:20)
[2024-06-19] MEDS ORDERED: METOCLOPRAMIDE INJ 10MG/2ML VIAL IV PRN (08:20)
[2024-06-19] MEDS ORDERED: diphenhydrAMINE 50MG/ML VIAL IV PRN (08:20)
[2024-06-19] MEDS ORDERED: MEPERIDINE 25 MG/ML 1ML VIAL IV PRN (08:20)
[2024-06-19] MEDS: oxyCODONE 5MG TAB PO PRN (08:45)
[2024-06-19 09:40] VITALS: BP 158/81; TEMP 97; O2SAT 98
== END 2024-06-19 09:50 | disposition home or self-care (01) ==
LOC: M SDC 06:05
PROVIDERS: ATTEND Orthopaedic Surgery
DX: G56.02 Carpal tunnel syndrome, left upper limb (principal); Z68.1 Body mass index [BMI] 19.9 or less, adult; F17.290 Nicotine dependence, other tobacco product, uncomplicated; Z79.899 Other long term (current) drug therapy
CPT/HCPCS: 64721; J0131; J0665; J0690; J1100; J2250; J2405; J2598; J3010

== ENCOUNTER → 2024-07-10 | Outpatient (CLI) | payer OTHER | LOC: M OUTALCOH 09:10 | PROVIDERS: ATTEND Psychiatry & Neurology Psychiatry | DX: F10.20 Alcohol dependence, uncomplicated (principal); F17.200 Nicotine dependence, unspecified, uncomplicated ==

== ENCOUNTER → 2024-08-20 | Outpatient (CLI) | payer OTHER | LOC: M SOG 11:18 | PROVIDERS: ATTEND Orthopaedic Surgery | DX: Z47.1 Aftercare following joint replacement surgery (principal); Z96.642 Presence of left artificial hip joint ==

== ENCOUNTER → 2024-09-13 | Outpatient (CLI) | payer OTHER | LOC: M RAD 09:01 | PROVIDERS: ATTEND Orthopaedic Surgery | DX: T84.84XA Pain due to internal orthopedic prosthetic devices, implants and grafts, initial encounter (principal); Z96.652 Presence of left artificial knee joint | CPT/HCPCS: 73700; 78315; A9503 ==

== ENCOUNTER → 2024-09-25 | Outpatient (CLI) | payer OTHER ==
[2024-09-25 11:47] LABS: ALBUMIN 3.9 G/DL (3.2-5.2); BLOOD UREA NITROGEN 7 MG/DL (9-23); CALCIUM LEVEL 8.9 MG/DL (8.5-10.1); CARBON DIOXIDE LEVEL 24 MMOL/L (20-31); CHLORIDE LEVEL 100 MMOL/L (98-107); CREATININE FOR GFR 0.56 MG/DL (0.70-1.30); GLOMERULAR FILTRATION RATE > 60.0 (>56); GLUCOSE, FASTING 91 MG/DL (60-100); POTASSIUM SERUM 3.8 MMOL/L (3.5-5.1); PTH INTACT 34.2 PG/ML (18.5-88.0); SODIUM LEVEL 134 MMOL/L (136-145)
[2024-09-25 11:48] LABS: THYROID STIMULATING HORMONE 2.294 uIU/ML (0.55-4.78)
[2024-09-25 11:49] LABS: ESTRADIOL 27.1 PG/ML (<39.8); FREE T4 1.13 NG/DL (0.89-1.76); TOTAL 25(OH) VITAMIN D 14.2 NG/ML (20.0-100.0)
[2024-09-25 11:50] LABS: CORTISOL AM 9.7 UG/DL (4.3-22.4)
== END ==
LOC: M LAB 09-13 09:08
PROVIDERS: ATTEND Internal Medicine
DX: M85.80 Other specified disorders of bone density and structure, unspecified site (principal); E55.9 Vitamin D deficiency, unspecified

== ENCOUNTER → 2024-09-25 | Outpatient (CLI) | payer OTHER ==
[2024-09-25 11:41] LABS: HEMATOCRIT 42.6 % (42.0-52.0); MEAN CORPUSCULAR HEMOGLOBIN 34.1 pg (27.0-33.0); MEAN CORPUSCULAR HGB CONC 35.2 g/dl (32.0-36.5); MEAN CORPUSCULAR VOLUME 96.8 fl (80.0-96.0); PLATELET COUNT, AUTOMATED 259 10^3/uL (150-450); WHITE BLOOD COUNT 5.2 10^3/uL (4.0-10.0)
[2024-09-25 11:46] LABS: ALBUMIN 3.9 G/DL (3.2-5.2); ALKALINE PHOSPHATASE 76 U/L (40-129); ALT/SGPT 20 U/L (7.0-40); AST/SGOT 28 U/L (<34); BILIRUBIN,TOTAL 0.3 MG/DL (0.3-1.2); BLOOD UREA NITROGEN 7 MG/DL (9-23); C REACTIVE PROTEIN QUANTITATIV < 0.50 MG/DL (<1.0); CALCIUM LEVEL 9.3 MG/DL (8.5-10.1); CARBON DIOXIDE LEVEL 26 MMOL/L (20-31); CHLORIDE LEVEL 101 MMOL/L (98-107); CREATININE FOR GFR 0.59 MG/DL (0.70-1.30); GLOMERULAR FILTRATION RATE > 60.0 (>56); GLUCOSE, FASTING 92 MG/DL (60-100); POTASSIUM SERUM 4.2 MMOL/L (3.5-5.1); SODIUM LEVEL 135 MMOL/L (136-145); TOTAL PROTEIN 7.6 G/DL (5.7-8.2)
[2024-09-25 12:23] LABS: EOSINOPHILS 1 % (0-3); LYMPHOCYTES 31 % (16-44); MONOCYTES 6 % (0-5); NEUTROPHILS 62 % (28-66)
[2024-09-25 12:24] LABS: PLATELET ESTIMATE NORMAL (NORMAL)
[2024-09-25 12:56] LABS: ERYTHROCYTE SEDIMENTATION RATE 32 mm/hr (0-20)
== END ==
LOC: M LAB 10:19
PROVIDERS: ATTEND Orthopaedic Surgery
DX: T84.84XA Pain due to internal orthopedic prosthetic devices, implants and grafts, initial encounter (principal)

== ENCOUNTER → 2024-11-07 | Outpatient (CLI) | payer OTHER ==
[2024-11-07 16:40] LABS: BASO # 0.1 10^3/uL (0.0-0.2); BASO % 0.6 % (0.0-1.0); EOS # 0.2 10^3/uL (0.0-0.5); EOS % 1.9 % (0.0-3.0); HEMATOCRIT 44.3 % (42.0-52.0); HEMOGLOBIN 15.2 g/dl (13.5-17.5); LYMPH # 2.9 10^3/uL (1.5-5.0); LYMPH % 36.5 % (24.0-44.0); MEAN CORPUSCULAR HEMOGLOBIN 34.3 pg (27.0-33.0); MEAN CORPUSCULAR HGB CONC 34.3 g/dl (32.0-36.5); MONO # 0.9 10^3/uL (0.0-0.8); NEUTROPHILS % 49.7 % (36.0-66.0); PLATELET COUNT, AUTOMATED 357 10^3/uL (150-450); RED BLOOD COUNT 4.43 10^6/uL (4.30-6.10)
[2024-11-07 16:44] LABS: ALKALINE PHOSPHATASE 92 U/L (40-129); ALT/SGPT 25 U/L (7.0-40); AST/SGOT 22 U/L (<34); BILIRUBIN,TOTAL 0.3 MG/DL (0.3-1.2); BLOOD UREA NITROGEN 8 MG/DL (9-23); C REACTIVE PROTEIN QUANTITATIV < 0.50 MG/DL (<1.0); CALCIUM LEVEL 9.4 MG/DL (8.5-10.1); CARBON DIOXIDE LEVEL 29 MMOL/L (20-31); CHLORIDE LEVEL 101 MMOL/L (98-107); GLOMERULAR FILTRATION RATE > 60.0 (>56); GLUCOSE, FASTING 70 MG/DL (60-100); POTASSIUM SERUM 4.7 MMOL/L (3.5-5.1); SODIUM LEVEL 138 MMOL/L (136-145)
[2024-11-07 16:46] LABS: RHEUMATOID FACTOR QUANT < 3.5 IU/ML (<14); URIC ACID 5.8 MG/DL (3.7-9.2)
[2024-11-07 17:17] LABS: ERYTHROCYTE SEDIMENTATION RATE 39 mm/hr (0-20)
== END ==
LOC: M PLALAB 13:44
PROVIDERS: ATTEND Nurse Practitioner Family
DX: R70.0 Elevated erythrocyte sedimentation rate (principal)

== ENCOUNTER → 2024-11-20 | Outpatient (CLI) | payer OTHER | LOC: M OUTALCOH 10:19 | PROVIDERS: ATTEND Psychiatry & Neurology Psychiatry | DX: Z03.89 Encounter for observation for other suspected diseases and conditions ruled out (principal); F17.200 Nicotine dependence, unspecified, uncomplicated ==

== ENCOUNTER 2024-11-30 09:01 | Outpatient (RCR) | payer OTHER | END 2024-12-19 | LOC: M OUTALCOH 09:01 | PROVIDERS: ATTEND Psychiatry & Neurology Psychiatry | DX: F10.20 Alcohol dependence, uncomplicated (principal); F17.200 Nicotine dependence, unspecified, uncomplicated ==

== ENCOUNTER → 2024-12-27 | Outpatient (REF) | payer OTHER ==
[~2024-12-27] MED LIST changes: +LIDO1ADH93 TOP; -LIDO5DIS41 TOP
[2024-12-27 14:00] LABS: BLOOD UREA NITROGEN < 5 MG/DL (9-23); CARBON DIOXIDE LEVEL 28 MMOL/L (20-31); CHLORIDE LEVEL 106 MMOL/L (98-107); CREATININE FOR GFR 0.62 MG/DL (0.70-1.30); GLOMERULAR FILTRATION RATE > 90.0 (>56); GLUCOSE, FASTING 92 MG/DL (60-100); POTASSIUM SERUM 4.6 MMOL/L (3.5-5.1); SODIUM LEVEL 138 MMOL/L (136-145)
[2024-12-27 14:02] LABS: BASO % 0.6 % (0.0-1.0); EOS # 0.2 10^3/uL (0.0-0.5); EOS % 2.9 % (0.0-3.0); HEMATOCRIT 43.3 % (42.0-52.0); HEMOGLOBIN 14.3 g/dl (13.5-17.5); LYMPH # 1.8 10^3/uL (1.5-5.0); LYMPH % 25.3 % (24.0-44.0); MEAN CORPUSCULAR HEMOGLOBIN 32.9 pg (27.0-33.0); MEAN CORPUSCULAR VOLUME 99.8 fl (80.0-96.0); MONO # 0.7 10^3/uL (0.0-0.8); MONO % 9.5 % (2.0-8.0); NEUTROPHILS # 4.3 10^3/uL (1.5-8.5); NEUTROPHILS % 61.3 % (36.0-66.0); PLATELET COUNT, AUTOMATED 284 10^3/uL (150-450); RED BLOOD COUNT 4.34 10^6/uL (4.30-6.10)
== END ==
LOC: M SFHCPLAZ 09:10
PROVIDERS: ATTEND Family Medicine
DX: Z01.810 Encounter for preprocedural cardiovascular examination (principal)

== ENCOUNTER 2025-04-09 11:43 | Emergency (ER) | payer MEDICAID, OTHER ==
[~2025-04-09] VITALS: Ht 162.6 cm; Wt 46.4 kg
[2025-04-09 11:45] VITALS: BP 174/88; TEMP 96.5; O2SAT 100
[2025-04-09] MEDS ORDERED: CETI-24 PO (12:27)
[2025-04-09] MEDS ORDERED: OLOP2.5D3 OP (12:27)
== END 2025-04-09 12:35 | disposition home or self-care (01) ==
LOC: M ED 11:43
DX: H10.9 Unspecified conjunctivitis (principal); Z79.899 Other long term (current) drug therapy

== ENCOUNTER 2025-05-18 21:40 | Emergency (ER) | payer MEDICAID, OTHER ==
[~2025-05-18] VITALS: Ht 162.6 cm; Wt 50.0 kg
[~2025-05-18 21:40] MED LIST changes: +CETI-24 PO; -IBUP-1022 PO; +IBUP600T42 PO; +OLOP2.5D3 OP
[2025-05-18 22:05] VITALS: BP 126/86; TEMP 96.1
[2025-05-18 22:10] VITALS: O2SAT 99
[2025-05-18 22:18] LABS: BASO # 0.0 10^3/uL (0.0-0.2); BASO % 0.5 % (0.0-1.0); EOS # 0.3 10^3/uL (0.0-0.5); EOS % 5.7 % (0.0-3.0); LYMPH # 2.0 10^3/uL (1.5-5.0); LYMPH % 36.3 % (24.0-44.0); MONO # 0.4 10^3/uL (0.0-0.8); MONO % 6.8 % (2.0-8.0); NEUTROPHILS # 2.8 10^3/uL (1.5-8.5); NEUTROPHILS % 50.3 % (36.0-66.0); PLATELET COUNT, AUTOMATED 226 10^3/uL (150-450)
[2025-05-18 22:33] LABS: INR 0.84
[2025-05-18 22:42] LABS: CK-MB VALUE MASS 2.6 NG/ML (<3.6)
[2025-05-18 22:54] LABS: CALCIUM LEVEL 8.0 MG/DL (8.5-10.1); CARBON DIOXIDE LEVEL 23 MMOL/L (20-31); CHLORIDE LEVEL 107 MMOL/L (98-107); CPK CREATINE PHOSPHOKINASE 94 U/L (46-171); CREATININE FOR GFR 0.53 MG/DL (0.70-1.30); GLOMERULAR FILTRATION RATE > 90.0 (>56); MB/CK RELATIVE INDEX 2.76 (< OR =4); POTASSIUM SERUM 4.5 MMOL/L (3.5-5.1); SODIUM LEVEL 138 MMOL/L (136-145)
== END 2025-05-18 22:30 | disposition left against medical advice (07) ==
LOC: EDBD 21:40 → M ED 21:40
DX: Z53.21 Procedure and treatment not carried out due to patient leaving prior to being seen by health care provider (principal)

== ENCOUNTER 2025-05-19 19:38 | Emergency (ER) | payer OTHER ==
[~2025-05-19] VITALS: Ht 162.6 cm; Wt 45.5 kg
[2025-05-19 19:50] VITALS: BP 158/93; TEMP 98.4; O2SAT 97
[2025-05-19 20:50] LABS: BASO # 0.1 10^3/uL (0.0-0.2); BASO % 0.5 % (0.0-1.0); EOS # 0.2 10^3/uL (0.0-0.5); EOS % 2.1 % (0.0-3.0); LYMPH # 3.0 10^3/uL (1.5-5.0); LYMPH % 31.1 % (24.0-44.0); MONO # 0.7 10^3/uL (0.0-0.8); MONO % 7.6 % (2.0-8.0); NEUTROPHILS # 5.6 10^3/uL (1.5-8.5); NEUTROPHILS % 58.3 % (36.0-66.0); PLATELET COUNT, AUTOMATED 276 10^3/uL (150-450)
[2025-05-19 21:27] LABS: CALCIUM LEVEL 7.9 MG/DL (8.5-10.1); CARBON DIOXIDE LEVEL 19 MMOL/L (20-31); CHLORIDE LEVEL 106 MMOL/L (98-107); CK-MB VALUE MASS 1.8 NG/ML (<3.6); CPK CREATINE PHOSPHOKINASE 128 U/L (46-171); CREATININE FOR GFR 0.49 MG/DL (0.70-1.30); ETHYL ALCOHOL (ETHANOL) 0.406 % (0.000-0.010); GLOMERULAR FILTRATION RATE > 90.0 (>56); MB/CK RELATIVE INDEX 1.40 (< OR =4); POTASSIUM SERUM 5.2 MMOL/L (3.5-5.1); SODIUM LEVEL 136 MMOL/L (136-145)
== END 2025-05-19 21:00 | disposition left against medical advice (07) ==
LOC: M ED 19:38
DX: Z53.21 Procedure and treatment not carried out due to patient leaving prior to being seen by health care provider (principal)